=== PATIENT | female | born 1935 | race Caucasian/White ===

== ENCOUNTER 2018-08-01 12:03 | Inpatient (IN) | END 2018-08-01 18:39 | disposition home or self-care (01) | DRG 291 ==

== ENCOUNTER 2018-08-08 09:23 | Observation (INO) | END 2018-08-09 17:30 | disposition home or self-care (01) ==

== ENCOUNTER 2018-11-17 11:35 | Inpatient (IN) | payer MEDICARE, OTHER ==
[~2018-11-17] VITALS: Ht 154.9 cm; Wt 73.2 kg
[~2018-11-17 11:35] MED LIST: AMLO5TAB4 PO; ASPI-817 PO; FURO40TA4 PO; ISOS120T15 PO; MTF1000T PO; RANO10002 PO; TRAM50TA PO
[2018-11-17] MEDS ORDERED: NITROGLYCERIN 2% 1 GM OINT PKT TD STA (11:43)
[2018-11-17] MEDS ORDERED: ASPIRIN 81 MG TAB PO STA (11:43)
[2018-11-17] MEDS ORDERED: ISOS10TA2 PO (11:58)
[2018-11-17] MEDS ORDERED: LOSA100T15 PO (11:58)
[2018-11-17] MEDS ORDERED: DEXL60CA2 PO (11:58)
--- NOTE | 2018-11-17 13:40 | ERD ---
ER Documentation Chief Complaint Chief Complaint PT [facility] CP 03/09 , DENIES SOB HPI This is a 82-year-old female who has a history of CAD, bypass, CHF who was sent from her home care facility for chest pain. The patient says she has substernal chest pressure radiating to her left shoulder and arm with some shortness of breath, no diaphoresis, no nausea vomiting. There is limited history because of her difficulty with language barrier. She has been admitted to the hospital in the past for chest pain back in July 2018 where she had a rule out. She received aspirin and 3 nitro sprays by EMS which relieved her pain ROS All systems reviewed and are negative except as per history of present illness. Medications Home Meds Active Scripts Furosemide* (Furosemide*) 40 Mg Tablet, 40 MG PO DAILY for 90 Days, #90 TAB Prov:JOHN ESTRADA MD 08/01/18 Reported Medications Isosorbide Dinitrate* (Isordil*) 10 Mg Tablet, 20 MG PO TID, TAB 11/17/18 Dexlansoprazole (Dexilant) 60 Mg Cap., 60 MG PO DAILY, #30 CAP 11/17/18 Losartan Potassium* (Losartan Potassium*) 100 Mg Tablet, 100 MG PO DAILY, TAB 11/17/18 Tramadol Hcl* (Ultram*) 50 Mg Tablet, 50 MG PO Q6H PRN for PAIN, TAB 08/08/18 Metformin* (Glucophage*) 1,000 Mg Tablet, 1000 MG PO BID, #60 TAB 08/08/18 Amlodipine Besylate* (Norvasc*) 5 Mg Tablet, 5 MG PO DAILY, TAB 08/08/18 Aspirin* (Aspirin* EC) 81 Mg Tablet.dr, 81 MG PO DAILY, TAB 08/08/18 Ranolazine* (Ranexa*) 1,000 Mg Tab.sr.12h, 1000 MG PO BID 07/30/18 Discontinued Reported Medications Isosorbide Mononitrate* (Isosorbide Mononitrate*) 120 Mg Tab.sr.24h, 120 MG PO DAILY, TAB.SA 08/08/18 Allergies Allergies: Coded Allergies: RITESH Inhibitors (Verified Allergy, Mild, SOB, 11/17/18) PMhx/Soc History of Surgery: Yes ( Bypass ) Anesthesia Reaction: Yes Hx Neurological Disorder: No Hx Respiratory Disorders: Yes Hx Cardiac Disorders: Yes (HTN, CHOLESTEROL , CHF, CAD) Hx Psychiatric Problems: No Hx Miscellaneous Medical Probl: Yes ( DM, peripheral neuropathy) Hx Alcohol Use: No Hx Substance Use: No Hx Tobacco Use: No Smoking Status: Never smoker FmHx Family History: No coronary disease Physical Exam Vitals Vital Signs Date Temp Pulse Resp B/P (MAP) Pulse Ox O2 O2 Flow FiO2 Time Delivery Rate 11/17/18 78 18 158/72 100 Room Air 12:14 (100) 11/17/18 98.7 74 16 158/64 100 11:50 (95) Physical Exam Const: Well-developed, well-nourished Head: Atraumatic, normocephalic Eyes: Normal Conjunctiva, PERRLA, EOMI, normal sclera, no nystagmus ENT: Normal External Ears, Nose and Mouth, moist mucus membranes. Neck: Full range of motion. No meningismus, no lymphadenopathy. Resp: Clear to auscultation bilaterally, no wheezing, rhonchi, rales Cardio: Regular rate and rhythm, no murmurs, S1 S2 present Abd: Soft, non tender x 4, non distended. Normal bowel sounds, no guarding or rebound, no pulsitile abdominal masses or bruits Skin: No petechiae or rashes, no ecchymosis , no maculopapular rash Back: No midline or flank tenderness Ext: No cyanosis, or edema, FROM x 4, normal inspection, neurovascularly intact x 4 Neur: Awake and alert, STR 5/5 x 4, sensation intact x 4, no focal findings, cerebellum intact Psych: Normal Mood and Affect Result Diagram: 11/17/18 1200 11/17/18 1200 Results 24 hrs Laboratory Tests Test 11/17/18 12:00 White Blood Count 8.2 10^3/ul Red Blood Count 3.62 10^6/ul Hemoglobin 11.5 g/dl Hematocrit 34.6 % Mean Corpuscular Volume 95.6 fl Mean Corpuscular Hemoglobin 31.8 pg Mean Corpuscular Hemoglobin Concent 33.2 g/dl Red Cell Distribution Width 12.8 % Platelet Count 227 10^3/UL Mean Platelet Volume 9.3 fl Immature Granulocytes % 0.400 % Neutrophils % 66.6 % Lymphocytes % 21.0 % Monocytes % 9.7 % Eosinophils % 1.3 % Basophils % 1.0 % Nucleated Red Blood Cells % 0.0 /100WBC Immature Granulocytes # 0.030 10^3/ul Neutrophils # 5.4 10^3/ul Lymphocytes # 1.7 10^3/ul Monocytes # 0.8 10^3/ul Eosinophils # 0.1 10^3/ul Basophils # 0.1 10^3/ul Nucleated Red Blood Cells # 0.0 10^3/ul Sodium Level 137 mmol/L Potassium Level 4.1 mmol/L Chloride Level 98 mmol/L Carbon Dioxide Level 31 mmol/L Anion Gap 8 Blood Urea Nitrogen 27 mg/dl Creatinine 1.01 mg/dl Est Glomerular Filtrat Rate mL/min mL/min Glucose Level 126 mg/dl Calcium Level 9.9 mg/dl Total Bilirubin 0.2 mg/dl Direct Bilirubin 0.00 mg/dl Indirect Bilirubin 0.2 mg/dl Aspartate Amino Transf (AST/SGOT) 24 IU/L Alanine Aminotransferase (ALT/SGPT) 19 IU/L Alkaline Phosphatase 41 IU/L Troponin I < 0.012 ng/ml B-Type Natriuretic Peptide 648 PG/ML Total Protein 7.3 g/dl Albumin 4.2 g/dl Globulin 3.10 g/dl Albumin/Globulin Ratio 1.35 Current Medications Medications Dose Sig/Alethea Start Time Status Last (Trade) Ordered Route PRN Stop Time Admin Dose Reason Admin Aspirin 162 mg ONCE STAT 11/17/18 DC (Aspirin) PO 11:43 11/17/18 11:44 1 inch ONCE STAT 11/17/18 DC 11/17/18 Nitroglycerin TD 11:43 12:13 11/17/18 11:44 (Nitroglyceri n 2% Oint) Procedures/MDM Ordering MD: LAURA CARRILLO DO Location: E/R Room/Bed: PROCEDURE: XR Chest. CLINICAL INDICATION: Chest pain. TECHNIQUE: Chest, 1 view. COMPARISON: 08/08/2018 FINDINGS: The cardiomediastinal silhouette is normal in size. There are aortic calcifications. Postsurgical changes of a CABG. No focal consolidation is seen. No pleural effusion is seen. No definite pneumothorax is seen. No acute osseous abnormality. IMPRESSION: No radiographic evidence of an acute cardiopulmonary process. Postsurgical changes of a CABG. Aortic atherosclerosis. RPTAT: AAEE Killian Ross Physician Date Time Electronically viewed and signed by Killian Ross Physician on 11/17/2018 12:17 PH/ CC: LAURA CARRILLO DO [id number] EKG: Rate/Rhythm: Normal sinus rhythm with left bundle branch block QRS, ST, QT: NORMAL CO, wide QRS, QT] Impression: Abnormal EKG Cardiac Admit MDM: Patient's symptoms are concerning for cardiac cause will r equire inpatient workup and continuous monitoring. Further w/u for ischemia, arrhythmia, PE or dissection will be deferred to the inpatient team. Departure Diagnosis: Primary Impression: Chest pain Chest pain type: unspecified Qualified Codes: R07.9 - Chest pain, unspecified Condition: Stable LAURA CARRILLO DO Nov 17, 2018 13:40
--- NOTE | 2018-11-17 13:51 | HP ---
Date/Time of Note Date/Time of Note DATE: 11/17/18 TIME: 13:45 Assessment/Plan VTE Prophylaxis Pharmacological prophylaxis: LMWH Lines/Catheters IV Catheter Type (from Nrs): Saline Lock Assessment/Plan Hospital Course 82 yo F who presents to ER with a 3 day hx of recurrent, intermittent L sided chest pain 1. Chest pain r/o ACS -recurrent admission for similar, -negative stress test 07/2018 but with known CAD and classic symptoms -repeat ACS r/o, cardio consult -LBBB on EKG 2. Hx of CHF -Last echo with EF 50% and stage 1 diastolic dysfxn 3. 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 4. Hypertension 5. Dyslipidemia 6. PreDM on empiric metformin. Last A1c 5.7 7. ?CKD 8. Chronic NC anemia PLAN: Telemetry admission, trend cardiac enzymes, oxygen and nitroglycerin therapy as needed. Daily aspirin if no allergy or bleeding risk. Get lipid profile, magnesium and TSH levels in am. Resume home meds and titrate for optimal control Continue all other supportive care Prophylaxis : Lovenox . Result Diagram: 11/17/18 1200 11/17/18 1200 Results 24hrs Laboratory Tests Test 11/17/18 12:00 White Blood Count 8.2 Red Blood Count 3.62 L Hemoglobin 11.5 L Hematocrit 34.6 L Mean Corpuscular Volume 95.6 Mean Corpuscular Hemoglobin 31.8 Mean Corpuscular Hemoglobin Concent 33.2 Red Cell Distribution Width 12.8 Platelet Count 227 Mean Platelet Volume 9.3 Immature Granulocytes % 0.400 Neutrophils % 66.6 Lymphocytes % 21.0 Monocytes % 9.7 Eosinophils % 1.3 Basophils % 1.0 Nucleated Red Blood Cells % 0.0 Immature Granulocytes # 0.030 Neutrophils # 5.4 Lymphocytes # 1.7 Monocytes # 0.8 Eosinophils # 0.1 Basophils # 0.1 Nucleated Red Blood Cells # 0.0 Sodium Level 137 Potassium Level 4.1 Chloride Level 98 Carbon Dioxide Level 31 Anion Gap 8 Blood Urea Nitrogen 27 H Creatinine 1.01 H Est Glomerular Filtrat Rate mL/min Glucose Level 126 Calcium Level 9.9 Total Bilirubin 0.2 Direct Bilirubin 0.00 Indirect Bilirubin 0.2 Aspartate Amino Transf (AST/SGOT) 24 Alanine Aminotransferase (ALT/SGPT) 19 Alkaline Phosphatase 41 L Troponin I < 0.012 B-Type Natriuretic Peptide 648 H Total Protein 7.3 Albumin 4.2 Globulin 3.10 Albumin/Globulin Ratio 1.35 HPI/ROS Admit Date/Time Admit Date/Time Hx of Present Illness Ms. Hurtado is an 82-year-old female with history of diabetes mellitus, hypertension, dyslipidemia, coronary artery disease, coronary artery bypass graft surgery and PT and stent placement to saphenous graft to left anterior descending 07/2012, who presents with complaints intermittent chest pain. Chest pain is located in L side of her chest, below her L breast and radiates to her back and radiates down L arm. She has no fever, no cough, no nausea or vomiting and no acid reflux. No fainting, no focal deficits, no joint swelling or deformity. ALLERGIES: RITESH INHIBITOR. SOCIAL HISTORY: No current tobacco, ETOH or illicit drug use. FAMILY HISTORY: No sudden cardiac or early CAD. REVIEW OF SYSTEMS: As above in HPI. CONSTITUTIONAL: No fevers, chills. PULMONARY: No current shortness of breath but dyspnea on exertion prior to admit. GASTROINTESTINAL: No vomiting. GENITOURINARY: No hematuria. MUSCULOSKELETAL: Degenerative joint disease. PSYCHIATRIC: The patient denies depression. NEUROLOGIC: History of CVA. ENDOCRINE: No documented history of diabetes mellitus. . PMH/Family/Social Past Medical History diabetes mellitus hypertension dyslipidemia coronary artery disease coronary artery bypass graft surgery stent placement to saphenous graft to left anterior descending 07/2012 . Medications Current Medications Ondansetron HCl (Zofran Inj) 4 mg ER BRIDGE PRN IV NAUSEA/VOMITING; Start 11/17/18 at 14:00; Stop 11/18/18 at 13:59 Acetaminophen (Tylenol Tab) 650 mg ER BRIDGE PRN PO .MILD PAIN 1-3 OR TEMP; Start 11/17/18 at 14:00; Stop 11/18/18 at 13:59 Coded Allergies: RITESH Inhibitors (Verified Allergy, Mild, SOB, 11/17/18) Past Surgical History Past Surgical Hx: coronary bypass surgery Family History Significant Family History: no pertinent family hx Social History Alcohol Use: none Smoking Status: Never smoker Drug Use: none Exam/Review of Systems Vital Signs Vitals Vital Signs Date Temp Pulse Resp B/P (MAP) Pulse Ox O2 O2 Flow FiO2 Time Delivery Rate 11/17/18 78 18 158/72 100 Room Air 12:14 (100) 11/17/18 98.7 11:50 Exam Constitutional: alert, oriented; No distress Psych: anxiety Head: normocephalic, atraumatic Eyes: nl conjunctiva, EOMI, PERRL ENMT: mucosa pink and moist Respiratory: clear to auscultation, normal air movement Cardiovascular: regular rate and rhythm, nl pulses, other (healed surgical scar) Gastrointestinal: soft, non-tender, bowel sounds Extremities: No edema Neurological: nl mental status, lethargic Skin: No rash or lesions Additional Comments PROCEDURE: Lexiscan myocardial perfusion study CLINICAL INDICATION: 82 -year-old patient with coronary artery disease, status post CABG, complaining of chest pain and shortness of breath. TECHNIQUE: Lexiscan 0.4 mg intravenously separate acquisition gated myocardial perfusion SPECT using Tc 99m Myoview 27.2 mCi intravenously at stress and Tc-99m Myoview, 11.0 mCi intravenously at rest was performed using the rest/stress sequence. Poststress Myoview SPECT images were obtained in the supine position. COMPARISON: March 06, 2013. FINDINGS: Perfusion images reveal a large size moderate to severe in degree nonreversible perfusion defect in the apical, distal anterior, distal anteroseptal and lateral grimm (previously predominantly reversible defects). There is no evidence of stress-induced ischemia. Lexiscan post stress gated SPECT images demonstrate a dyskinetic septal wall and no wall motion abnormalities. IMPRESSION: 1. The type and distribution of the scintigraphic abnormalities are most consistent with a large size nonreversible perfusion defect involving the apex, distal anterior, distal anteroseptal and lateral grimm likely due to prior myocardial infarction. 2. Dyskinetic septal wall likely related to prior CABG and no new wall motion abnormalities. 3. The left ventricle ejection fraction at stress is 60% (prior EF was 66%). A call report was made to Dr. Abad at 03:06 p.m. on August 01, 2018. Patient Name: LINDA HURTADO Gender: Female Date: 1935 Study Date: 31-Jul-2018 [employer] Intern: Eveline Peters RDCS Location: 116 Ref. Physician: JOHN ESTRADA Quality: Adequate Procedures: Transthoracic echocardiogram with complete 2D, M-Mode, and doppler examination. Indications: Congestive Heart Failure. 2D/M Mode Doppler Measurement Value Normal Ranges Measurement Value Normal Ranges LVIDd 2D 3.7 3.5 - 5.6 cm AV Peak Mike 1.7 m/sec LVIDs 2D 2.9 2.1 - 4.1 cm AV Peak PG 11.0 mmHg LVPWd 2D 1.0 0.6 - 1.1 cm LVOT Peak Mike 1.0 m/sec IVSd 2D 1.1 0.6 - 1.1 cm LVOT Peak PG 4.0 mmHg AoR Diam 2D 2.5 2.0 - 3.7 cm MV E Peak Mike 0.7 m/sec LA/Ao 2D 2 0 - 1 MV A Peak Mike 1.0 m/sec LA Dimen 2D 3.9 2.3 - 4.0 cm MV E/A 0.8 MV Decel Time 257 msec Lat E` Mike 0.1 m/sec Lateral E/E` 12.9 MV E/A 0.8 TR Peak Mike 3.2 m/sec TR Peak PG 41.0 mmHg RVSP 49.0 mmHg RA Pressure 8.0 Findings Left Ventricle: Lower limits of normal systolic function. Normal left ventricular cavity size. Mild concentric left ventricular hypertrophy. Ejection fraction is visually estimated at 50 %. Tissue Doppler/Mitral Doppler indices are consistent with impaired relaxation (Stage I diastolic dysfunction). These segments of the LV are hypokinetic inferior apex segment and inferior mid segment. Right Ventricle: Normal right ventricular size. Normal right ventricular systolic function. Left Atrium: The left atrium is normal in size. Right Atrium: The right atrium is normal in size. Mitral Valve: Mild mitral leaflet calcification. Mild mitral annular calcification. Mild mitral valve regurgitation. Aortic Valve: No significant aortic stenosis or insufficiency. Aortic cusps appear mildly calcified. Tricuspid Valve: Normal appearance of the tricuspid valve. Estimated peak PA systolic pressure 49 mmHg. There is mild to moderate tricuspid regurgitation. Pulmonic Valve: Normal pulmonic valve appearance. There is mild pulmonic regurgitation. Pericardium: Normal pericardium with no significant pericardial effusion. Aorta: Normal aortic root. IVC: Normal size and no respiratory collapse consistent with elevated right atrial pressure. Conclusions Lower limits of normal systolic function. Normal left ventricular cavity size. Mild concentric left ventricular hypertrophy. Ejection fraction is visually estimated at 50 %. Tissue Doppler/Mitral Doppler indices are consistent with impaired relaxation (Stage I diastolic dysfunction). These segments of the LV are hypokinetic inferior apex segment and inferior mid segment. Mild mitral leaflet calcification. Mild mitral annular calcification. Mild mitral valve regurgitation. Normal appearance of the tricuspid valve. Estimated peak PA systolic pressure 49 mmHg. There is mild to moderate tricuspid regurgitation. Normal pulmonic valve appearance. There is mild pulmonic regurgitation. PROCEDURE: XR Chest. CLINICAL INDICATION: Chest pain. TECHNIQUE: Chest, 1 view. COMPARISON: 08/08/2018 FINDINGS: The cardiomediastinal silhouette is normal in size. There are aortic calcifications. Postsurgical changes of a CABG. No focal consolidation is seen. No pleural effusion is seen. No definite pneumothorax is seen. No acute osseous abnormality. IMPRESSION: No radiographic evidence of an acute cardiopulmonary process. Postsurgical changes of a CABG. Aortic atherosclerosis. RPTAT: AAEE Physician Nish Date Time Electronically viewed and signed by Killian Ross Physician on 11/17/2018 12:17 I reviewed EKG Rate: Within normal limits Rhythm: sinus with LBBB Note: No ST elevation or depressions, CARMEN NASH Nov 17, 2018 13:51
[2018-11-17] MEDS ORDERED: traMADol 50 MG TAB PO PRN (14:00)
[2018-11-17] MEDS ORDERED: ACETAMINOPHEN 325 MG TAB PO PRN (14:00)
[2018-11-17] MEDS ORDERED: ONDANSETRON 4 MG INJ IV PRN (14:00)
[2018-11-17 14:53] VITALS: PULSE 71
[2018-11-17 15:00] VITALS: Ht 154.9 cm; Wt 73.2 kg
[2018-11-17] MEDS: AMLODIPINE 5 MG TAB PO SCH (15:41)
[2018-11-17 16:01] VITALS: PULSE 71
[2018-11-17 16:31] VITALS: BP 143/70; PULSE 78; RESP 18
[2018-11-17] MEDS ORDERED: hydrALAzine 20 MG INJ IV PRN (18:00)
--- NOTE | 2018-11-17 19:32 | CONS ---
DATE OF ADMISSION: 11/17/2018 DATE OF CONSULTATION: 11/17/2018 REASON FOR CONSULTATION: Chest pain, assess for acute coronary syndrome. REQUESTING PHYSICIAN: Copy from the hospitalist service. HISTORY OF PRESENT ILLNESS: Ms. Hurtado is an 82-year-old female with a history of diabetes mellitus, hypertension, dyslipidemia, coronary artery disease, status post prior coronary bypass graft surgery, status post stent placed to saphenous vein graft supplying the LAD in 07/2012 with a stress test neg ative for ischemia on 07/2018 and preserved EF at that time, who presents with complaints of substern al chest pain, pressure-like, occurring at rest, radiating to his left arm. Upon arrival in the [facility] department, temperature 98.7, blood pressure 158/64, pulse 74, respiration 16, saturating 100%. The patient's labs revealed a white count 8.2, hemoglobin 11.5, platelet count 227. Sodium 137, po tassium 4.1, creatinine 1, BUN 27. Troponin negative. BNP of 648. The patient underwent a chest x- ray revealing no radiographic evidence of acute cardiopulmonary process. The patient is status post median sternotomy. The patient's electrocardiogram revealed nonspecific IVCD with secondary pause ab normalities. The patient subsequently admitted to the floor and since admit to floor. She denies on going chest pain at this time. PAST MEDICAL HISTORY: As above in HPI. MEDICATIONS CURRENTLY IN HOSPITAL: 1. Aspirin 81 daily. 2. Losartan 100 mg daily. 3. Isordil 20 mg 3 times a day. 4. Ranexa 1000 mg b.i.d. 5. Norvasc 5 mg daily. ALLERGIES: RITESH INHIBITOR. SOCIAL HISTORY: No current tobacco, ETOH or illicit drug use. FAMILY HISTORY: No sudden cardiac or early CAD. REVIEW OF SYSTEMS: As above in HPI. CONSTITUTIONAL: No fevers, chills. PULMONARY: No current shortness of breath. CARDIOVASCULAR: Intermittent chest pain. GASTROINTESTINAL: No vomiting. GENITOURINARY: No hematuria. MUSCULOSKELETAL: Degenerative joint disease. PSYCHIATRIC: The patient denies depression. NEUROLOGIC: No documented history of CVA. ENDOCRINE: No documented history of diabetes mellitus. PHYSICAL EXAMINATION: VITAL SIGNS: Temperature 98, blood pressure 140/70, pulse 70, respiratory rate 18, saturating 100%. GENERAL: The patient is alert, awake, complaining of intermittent chest pain. NECK: JVP approximately 8 to 9 cm of water. CHEST: Fair air movement throughout. HEART: Regular rate and rhythm. Normal S1, S2, I/ systolic murmur, nondisplaced PMI. ABDOMEN: Positive bowel sounds, soft. EXTREMITIES: No significant pitting edema, 1+ pulses bilateral posterior tibial. LABORATORIES: Most recently from as above in HPI. No further labs for my review at this time. IMAGING STUDIES: As above in HPI. No further imaging. ECG: As in HPI. No further electrograms for my review at this time. IMPRESSION: 1. Chest pain, assess for acute coronary syndrome. 2. Hypertension, mildly elevated. 3. History of coronary artery disease, status post coronary artery bypass graft surgery. 4. History of percutaneous transluminal coronary angioplasty and stent placement to saphenous vein g raft in 2011. 5. Anemia, mild. 6. Increased BNP, assess for congestive heart failure. RECOMMENDATIONS: 1. At this time, would maintain the patient on aspirin for further cardiac events. 2. Maintain patient on telemetry monitoring, follow rhythm and rates closely. 3. Complete the patient's rule out for myocardial infarction to ensure the patient's chest pain was not due to acute coronary syndrome such as an acute myocardial infarction. 4. Follow the patient's blood pressure after receiving Cozaar. 5. Isordil and Norvasc, and possibly consider adding beta martell to maximize medical therapy. 6. Check a fasting lipid panel for general anesthesia and initiate statin and Lipitor medication aft er. 7. Continue echo for reassessment of the patient's ejection fraction, wall motion and major valve ab normalities. Thank you for allowing me to take part in the care of this patient. I will continue to follow very c losely with you with recommendations to be made as the patient progresses through her inpatient hospi radha clinical course. Dictated By: STEPHANY REYES/KATIE Conf#: [id number] DID#: [id number] CC: CARMEN NASH MD;*EndCC*
[2018-11-17 20:00] VITALS: BP 151/67; PULSE 72; PULSE 74; RESP 18
[2018-11-17] MEDS: RANOLAZINE (SR) 500 MG TAB PO SCH (20:26)
[2018-11-17] MEDS: ISOSORBIDE DINITRATE 10 MG TAB PO SCH (20:26)
[2018-11-18] VITALS (12 sets, daily range): BP systolic 110–151; BP diastolic 53–72; PULSE 62–81; RESP 16–20
[2018-11-18] MEDS: PANTOPRAZOLE (EC) 40 MG TAB PO SCH (05:41)
[2018-11-18] MEDS: AMLODIPINE 5 MG TAB PO SCH (08:48)
[2018-11-18] MEDS: RANOLAZINE (SR) 500 MG TAB PO SCH ×2 (08:48→20:54)
[2018-11-18] MEDS: ASPIRIN (EC) 81 MG TAB PO SCH (08:48)
[2018-11-18] MEDS: LOSARTAN 50 MG TAB PO SCH (08:48)
[2018-11-18] MEDS: ISOSORBIDE DINITRATE 10 MG TAB PO SCH ×3 (08:49→20:54)
[2018-11-18] MEDS: ENOXAPARIN 30 MG/0.3 ML SYG SC SCH (08:54)
--- NOTE | 2018-11-18 09:30 | CONS ---
Consult Date/Type/Reason Admit Date/Time Nov 17, 2018 at 13:44 Initial Consult Date Date/Time of Note DATE: 11/18/18 TIME: 09:28 Subjective NO acute events - pt feels better now - o active CP currently. ROS: No fever, no chills, no nausea, no vomiting, no diarrhea/constipation No recent weight changes No chest pain, no PND, no orthopnea - mild SOB No dizziness, blurred vision No thirst, no heat or cold intolerance Objective Vitals Vital Signs Date Temp Pulse Resp B/P (MAP) Pulse Ox O2 O2 Flow FiO2 Time Delivery Rate 11/18/18 98.0 73 18 112/57 98 07:17 (75) 11/17/18 Room Air 14:10 Intake and Output 11/17/18 11/17/18 11/18/18 1515:00 23:00 07:00 IntakeIntake Total 400 ml 300 ml BalanceBalance 400 ml 300 ml Exam General: WN/WD/NAD, AOx 3 HEENT: Unicetric/atraumatic/EOMI (ot follow commands) NECK: JVD elevated, no thyromegaly Lymph: no lymphadenopathy HEART: regular with no S3, II/ systolic murmur at apex LUNGS: Coarse sounds ABD: soft, NT, ND, +BS : Intact Neuro: non focal SKIN: chronic changes EXT: trace edema Results/Medications Result Diagram: 11/17/18 1200 11/17/18 1200 Results 24 hrs Laboratory Tests Test 11/17/18 12:00 11/17/18 15:28 11/17/18 18:01 11/18/18 00:21 White Blood Count 8.2 Red Blood Count 3.62 L Hemoglobin 11.5 L Hematocrit 34.6 L Mean Corpuscular 95.6 Volume Mean Corpuscular 31.8 Hemoglobin Mean Corpuscular 33.2 Hemoglobin Concent Red Cell 12.8 Distribution Width Platelet Count 227 Mean Platelet Volume 9.3 Immature 0.400 Granulocytes % Neutrophils % 66.6 Lymphocytes % 21.0 Monocytes % 9.7 Eosinophils % 1.3 Basophils % 1.0 Nucleated Red Blood 0.0 Cells % Immature 0.030 Granulocytes # Neutrophils # 5.4 Lymphocytes # 1.7 Monocytes # 0.8 Eosinophils # 0.1 Basophils # 0.1 Nucleated Red Blood 0.0 Cells # Sodium Level 137 Potassium Level 4.1 Chloride Level 98 Carbon Dioxide Level 31 Anion Gap 8 Blood Urea Nitrogen 27 H Creatinine 1.01 H Est Glomerular Filtrat Rate mL/min Glucose Level 126 Calcium Level 9.9 Total Bilirubin 0.2 Direct Bilirubin 0.00 Indirect Bilirubin 0.2 Aspartate Amino 24 Transf (AST/SGOT) Alanine 19 Aminotransferase (AL T/SGPT) Alkaline Phosphatase 41 L Troponin I < 0.012 0.013 < 0.012 B-Type Natriuretic 648 H Peptide Total Protein 7.3 Albumin 4.2 Globulin 3.10 Albumin/Globulin 1.35 Ratio Bedside Glucose 94 Magnesium Level 1.7 Creatine Kinase 20 L 22 L Creatine Kinase 3.4 2.1 Index Creatinine Kinase MB 0.67 0.47 (Mass) Home Meds Active Scripts Furosemide* (Furosemide*) 40 Mg Tablet, 40 MG PO DAILY for 90 Days, #90 TAB Prov:MILGRJOHN NAJERA MD 08/01/18 Reported Medications Isosorbide Dinitrate* (Isordil*) 10 Mg Tablet, 20 MG PO TID, TAB 11/17/18 Dexlansoprazole (Dexilant) 60 Mg Cap.mp, 60 MG PO DAILY, #30 CAP 11/17/18 Losartan Potassium* (Losartan Potassium*) 100 Mg Tablet, 100 MG PO DAILY, TAB 11/17/18 Tramadol Hcl* (Ultram*) 50 Mg Tablet, 50 MG PO Q6H PRN for PAIN, TAB 08/08/18 Metformin* (Glucophage*) 1,000 Mg Tablet, 1000 MG PO BID, #60 TAB 08/08/18 Amlodipine Besylate* (Norvasc*) 5 Mg Tablet, 5 MG PO DAILY, TAB 08/08/18 Aspirin* (Aspirin* EC) 81 Mg Tablet.dr, 81 MG PO DAILY, TAB 08/08/18 Ranolazine* (Ranexa*) 1,000 Mg Tab.sr.12h, 1000 MG PO BID 07/30/18 Discontinued Reported Medications Isosorbide Mononitrate* (Isosorbide Mononitrate*) 120 Mg Tab.sr.24h, 120 MG PO DAILY, TAB.SA 08/08/18 Medications Current Medications Amlodipine Besylate (Norvasc) 5 mg DAILY PO Last administered on 11/18/18at 08:48; Admin Dose 5 MG; Start 11/17/18 at 15:00 Aspirin (Halfprin) 81 mg DAILY PO Last administered on 11/18/18 08:48; Admin Dose 81 MG; Start 11/18/18 at 09:00 Isosorbide Dinitrate (Isordil) 20 mg TID PO Last administered on 11/18/18 08:49; Admin Dose 20 MG; Start 11/17/18 at 21:00 Ranolazine (Ranexa) 1,000 mg BID PO Last administered on 11/18/18 08:48; Admin Dose 1,000 MG; Start 11/17/18 at 21:00 Tramadol HCl (Ultram) 50 mg Q6H PRN PO PAIN; Start 11/17/18 at 14:00 Pantoprazole (Protonix Tab) 40 mg DAILY@06 PO Last administered on 11/18/18 05:41; Admin Dose 40 MG; Start 11/18/18 at 06:00 Losartan Potassium (Cozaar) 100 mg DAILY PO Last administered on 11/18/18 08:48; Admin Dose 100 MG; Start 11/18/18 at 09:00 Enoxaparin Sodium (Lovenox) 30 mg DAILY SC Last administered on 11/18/18 08:54; Admin Dose 30 MG; Start 11/18/18 at 09:00 Hydralazine HCl (Apresoline) 10 mg Q4H PRN IV SBP>170; Start 11/17/18 at 18:00 Imaging 1. Chest pain, assess for acute coronary syndrome - r/o SC, no CP now - med Rx advised. 2. Hypertension, mildly elevated - con't to adjust meds, feels better now. 3. History of coronary artery disease, status post coronary artery bypass graft surgery - stable. 4. History of percutaneous transluminal coronary angioplasty and stent placement to saphenous vein graft in 2011. 5. Anemia, mild - no active bleedig now. 6. Increased BNP, assess for congestive heart failure - ECHO to follow. ARIA FERRO MD Nov 18, 2018 09:29
[2018-11-18] MEDS ORDERED: MAGNESIUM SULFATE 1 GM/D5W 100 ML IVPB ONE (11:30)
[2018-11-18] MEDS: METOPROLOL 25 MG TAB PO SCH ×2 (14:42→20:54)
--- NOTE | 2018-11-18 15:21 | RADRPT ---
Echocardiogram Report Patient Name: LINDA PARKPatient ID: [id number] : 1935 (82y 11m)Study Date: 11/18/2018 7:40:47 AM Gender: FAccession #: [id number] Tech: [place] Location: Ref.Physician: STEPHANY ABAD Height(Cm): BSA: Weight(Kg): Quality: GoodAccount #: Procedures: Echocardiographic Report: Transthoracic echocardiogram with complete 2D, M-Mode, and doppler examination. Indications: Chest Pain. Measurements: 2D/M Mode Doppler Measurement Value Normal Range Measurement Value Normal Range LVIDd 2D 4.3 [ 3.8 - 5.2 ] cm AV Peak Mike 1.7 [ 100.0 - 170.0 ] cm/sec LVIDs 2D 2.7 [ 2.2 - 3.5 ] cm AV Peak PG 11.0 [ 2.0 - 9.0 ] mmHg LVPWd 2D 1.2 [ 0.6 - 0.9 ] cm LVOT Peak Mike 0.9 [ 70.0 - 110.0 ] cm/sec IVSd 2D 1.2 [ 0.6 - 0.9 ] cm LVOT Peak PG 3.0 [ 2.0 - 6.0 ] mmHg AoR Diam 2D 2.5 [ 2.3 - 3.1 ] cm MV E Peak Mike 0.8 [ 60.0 - 130.0 ] cm/sec EDV 2D 83.5 [ 46.0 - 106.0 ] ml MV A Peak Mike 1.1 [ 100.0 - 120.0 ] cm/sec ESV 2D 28.0 [ 14.0 - 42.0 ] ml MV E/A 0.7 [ 0.8 - 1.5 ] ratio EF 2D 66.5 [ 54.0 - 74.0 ] percent MV Decel Time 190 [ 104 - 258 ] msec LA Dimen 2D 3.2 [ 2.7 - 3.8 ] cm Lat E` Mike 0.1 [ 10.0 - 15.0 ] cm/sec Lateral E/E` 12.3 [ 1.0 - 2.0 ] ratio MV E/A 0.7 [ 0.8 - 1.5 ] ratio TR Peak Mike 2.4 [ 100.0 - 280.0 ] cm/sec TR Peak PG 24.0 mmHg RVSP 27.0 [ 10.0 - 36.0 ] mmHg RA Pressure 3.0 mmHg Findings: Left Ventricle: Normal left ventricular systolic function. Normal left ventricular cavity size. Mild concentric left ventricular hypertrophy. Ejection fraction is visually estimated at 55 %. Tissue Doppler/Mitral Doppler indices are consistent with impaired relaxation (Stage I diastolic dysfunction). Right Ventricle: Normal right ventricular size. Normal right ventricular systolic function. Left Atrium: The left atrium is normal in size. Right Atrium: The right atrium is normal in size. Mitral Valve: Normal appearance of the mitral valve. Mild mitral annular calcification. Mild mitral valve regurgitation. Aortic Valve: No significant aortic stenosis or insufficiency. Aortic cusps appear mildly calcified. Tricuspid Valve: Normal appearance of the tricuspid valve. Estimated peak PA systolic pressure 27 mmHg. There is mild tricuspid regurgitation. Pulmonic Valve: Normal pulmonic valve appearance. Pericardium: Normal pericardium with no significant pericardial effusion. Pleural effusion seen. Aorta: Normal aortic root. IVC: Normal size and normal respiratory collapse consistent with normal right atrial pressure. Conclusions: Normal left ventricular systolic function. Normal left ventricular cavity size. Mild concentric left ventricular hypertrophy. Ejection fraction is visually estimated at 55 %. Tissue Doppler/Mitral Doppler indices are consistent with impaired relaxation (Stage I diastolic dysfunction). Normal appearance of the mitral valve. Mild mitral annular calcification. Mild mitral valve regurgitation. Normal appearance of the tricuspid valve. Estimated peak PA systolic pressure 27 mmHg. There is mild tricuspid regurgitation. Electronically Signed By: Stephany Abad 2018-11-18 15:21:13 PST
[2018-11-18] MEDS ORDERED: METOPROLOL 5 MG INJ ONE ×2 (15:49→16:06)
[2018-11-18] MEDS ORDERED: IOHEXOL 100 ML ONE (16:04)
[2018-11-18] MEDS ORDERED: SOD CHLORIDE 0.9% 100 ML ONE (16:04)
[2018-11-18] MEDS ORDERED: IOHEXOL 350MG/ML 50 ML BTL ONE (16:04)
--- NOTE | 2018-11-18 16:38 | PN ---
DATE: 11/18/2018 TIME OF EVALUATION: About 10:00 a.m. SUBJECTIVE: The patient says she continues to have intermittent chest pain. PHYSICAL EXAMINATION: VITAL SIGNS: Temperature 98.0, pulse 75, respirations 18, blood pressure 151/67, saturations are 98% on room air. GENERAL: The patient is calm, alert, in no distress. HEENT: Head is normocephalic. Pupils are equal and reactive. NECK: Supple, nontender. CHEST: With clear breath sounds bilaterally. No tenderness on palpation. CARDIOVASCULAR: Heart sounds, S1 and S2. No murmurs. Telemetry rhythm, sinus with no arrhythmias. ABDOMEN: Soft, nontender, nondistended. Normoactive bowel sounds. EXTREMITIES: No lower extremity edema. LABORATORY VALUES: The patient has had 3 negative troponins. Magnesium level from yesterday was 1.7 . IMPRESSION: An 82-year-old female who had presented to the emergency room with chest pain of 3 days' duration, described as recurrent and intermittent on the left side and managed as follows: 1. Chest pain. - Acute coronary syndrome has been ruled out. 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 Barreto. The patient had a positive stress t est in the office back in 07/2018, but had a negative stress test here in the hospital about the same time. The patient does have known coronary artery disease and her symptoms sound classic. [facility] referred her to get a CT coronary angiogram at that time, but I do not believ e this was done yet. I spoke with the patient's son after that conversation and he told me this proc edure had not been done because the family did not know about it. Upon speaking with the inpatient c ardiologist, Dr. Padilla, the plan is to go ahead and order a CT angiogram and further intervention wi ll depend on what is found. The patient, however, has borderline renal function, so I am going to ge t a nephrology consultation to make sure that this procedure is done safely. 2. History of congestive heart failure. - Last echo with ejection fraction of 50% and stage I diastolic dysfunction, no concern for acute exa cerbation at this time. 3. History of coronary artery disease with history of PTCA and stent placement in 2011 and CABG with saphenous vein graft to left anterior descending. 4. Hypertension with good control. 5. Dyslipidemia. 6. Prediabetes mellitus on empiric metformin. 7. Possible chronic kidney disease. 8. Chronic normocytic anemia. DISPOSITION: The patient is for CTA today. Nephrology consultation. ADDENDUM: Later in the day, I was notified that the patient cannot undergo CT on this hospital as he r heart rate was maintained in the 60s. Based on cardiology's prior recommendations, I will go ahead and restart her on twice a day beta martell therapy. DVT prophylaxis with Lovenox. Care time today has been more than 2 hours. Dictated By: CARMEN NASH MD BA/NTS Conf#: [id number] DID#: [id number] CC: STEPHANY CRABTREE MD;*EndCC*
--- NOTE | 2018-11-18 18:51 | CONS ---
DATE OF ADMISSION: 11/17/2018 DATE OF CONSULTATION: TYPE OF CONSULTATION: Nephrology. REASON FOR CONSULTATION: Acute kidney injury. PHYSICIAN REQUESTING CONSULT: Dr. Nash. HISTORY OF PRESENT ILLNESS: This is an 82-year-old female with a past medical history of CHF, histor y of coronary artery disease, history of hypertension, dyslipidemia, questionable history of CKD, who presented to [facility] with intermittent chest pain. The patient stated the ches t pain was located left side radiating down. The patient denies any fevers, chills, nausea, and vomi ting. Upon arrival to the emergency room, the patient was admitted to telemetry to rule out acute co ronary syndrome. She was subsequently seen by furniture repairer, Dr. Padilla and Dr. Abad. The patient was placed on antihypertensive medications and given pain medications. In terms of patient's renal history, per the patient, she denies any prior history of chronic kidney disease or acute kidney injury. The patient's baseline creatinine has been ranging between 1.0 to 1. 4 mg/dL. The patient denies any hemoptysis, hematemesis or hematochezia. PAST MEDICAL HISTORY: As stated above, history of possible CKD, history of CHF, coronary artery dise ase, hypertension, dyslipidemia. FAMILY HISTORY: No family of kidney disease. SOCIAL HISTORY: Does not drink, smoke or do drugs. MEDICATIONS: The patient's medications have been reviewed. ALLERGIES: PLEASE SEE LIST. PAST SURGICAL HISTORY: Status post CABG. REVIEW OF SYSTEMS: A 14-point review of systems conducted. Pertinent positives stated in HPI, other wagoner negative. PHYSICAL EXAMINATION: VITAL SIGNS: Blood pressure is 127/63, respiration 18, pulse 73, temperature 98.8. HEENT: Head is normocephalic. NECK: Supple. HEART: Regular rate. LUNGS: Show diminished breath sounds at the base. ABDOMEN: Soft, nontender to palpation without rebound or guarding. EXTREMITIES: Negative for clubbing, cyanosis, no edema. DERMATOLOGIC: No rashes. MUSCULOSKELETAL: No joint effusion. NEUROLOGIC: No change in exam. LABORATORY DATA: Shows white count 8.2, hemoglobin 9.5, platelet count 227. Sodium 137, BUN 27, cre atinine 1.1. ASSESSMENT AND PLAN: This is an 82-year-old female who presents with: 1. Renal insufficiency, likely chronic kidney disease with previous baseline creatinine about 1.0 to 1.4 mg/dL. The patient's renal function appears to be near baseline. The patient is pending a CT a ngio. Recommendation at this point is to give a course of IV fluids if the patient allows. Would, o therwise, avoid hemodynamic fluctuations. We will monitor urinary output closely. The patient has a mild risk for contrast-associated nephropathy given history of chronic kidney disease and hypertensi on. 2. Chest pain. The patient has been ruled out for acute coronary syndrome. A CT angio is pending. We will continue to monitor. Follow up with Cardiology. 3. History of congestive heart failure. The patient currently compensated. Continue to monitor. 4. History of coronary artery disease, status post PCI stent placement, history of coronary artery b ypass graft ____ fracture. 6. Hypertension. Continue blood pressure regimen to Dyslipidemia. Continue statin therapy. 7. Anemia. Monitor. Thank you, Dr. Gregory, for this interesting consult. It will be a pleasure to follow patient with you throughout the hospital course. Dictated By: SHAYLA KIDD DO NR/NTS Conf#: [id number] DID#: [id number] CC: CARMEN NASH MD;*EndCC*
[2018-11-19] VITALS (9 sets, daily range): BP systolic 84–160; BP diastolic 46–69; PULSE 50–62; RESP 16–18
[2018-11-19] MEDS ORDERED: morphine 2 MG INJ IV PRN (04:30)
[2018-11-19] MEDS: PANTOPRAZOLE (EC) 40 MG TAB PO SCH (05:16)
--- NOTE | 2018-11-19 06:53 | PN ---
Date/Time of Note Date/Time of Note DATE: 11/19/18 TIME: 06:50 Assessment/Plan VTE Prophylaxis Risk score (from Ns)>0 risk: 6 SCD applied (from Nsg): No Pharmacological prophylaxis: LMWH Lines/Catheters IV Catheter [facility] (from [facility] [place] Lock Assessment/Plan Hospital Course S: O: Constitutional: alert, oriented; No distress Psych: anxiety Head: normocephalic, atraumatic Eyes: nl conjunctiva, EOMI, PERRL ENMT: mucosa pink and moist Respiratory: clear to auscultation, normal air movement Cardiovascular: regular rate and rhythm, nl pulses, other (healed surgical scar) Gastrointestinal: soft, non-tender, bowel sounds Extremities: No edema Neurological: nl mental status, Skin: No rash or lesions assessment and plan: 82 yo F who presents to ER with a 3 day hx of recurrent, intermittent L sided chest pain 1. Chest pain -ACS ruled out -diffusely abn cardiac CT with possible instent stenosis?, await cardiology review and recs -LBBB on EKG 2. Hx of CHF -Last echo with EF 50% and stage 1 diastolic dysfxn 3. Hx of CAD with hx of LINE E[employer]OR and stent placement in 2011 to a saphenous vein graft to left anterior descending and History of coronary artery bypass graft. -see #1 4. Hypertension: good control 5. Dyslipidemia: statin 6. PreDM on empiric metformin. Last A1c 5.7 7. ?CKD -creatinine stable today after contrast study yesterday, continue to monitor -Nephro following 8. Chronic NC anemia: stable 9. Thyroid nodule 9mm -TSH and free T4 08/17, wnl, repeat ? will discuss with endo PLAN: await cardio plan Continue all other supportive care Prophylaxis : Lovenox . Result Diagram: 11/19/18 0507 11/19/18 0507 Results 24hrs Laboratory Tests Test 11/18/18 11:05 11/18/18 17:35 11/19/18 05:07 Magnesium Level 1.8 Urine Color YELLOW Urine Clarity CLEAR Urine pH 7.0 Urine Specific [place] 1.039 H Urine Ketones NEGATIVE Urine Nitrite NEGATIVE Urine Bilirubin NEGATIVE Urine Urobilinogen NEGATIVE Urine Leukocyte Esterase NEGATIVE Urine Hemoglobin NEGATIVE Urine Random Creatinine 27.90 Urine Random Sodium 74 Urine Glucose NEGATIVE Urine Total Protein 6.0 White Blood Count 8.8 Red Blood Count 3.49 L Hemoglobin 11.0 L Hematocrit 33.0 L Mean Corpuscular Volume 94.6 Mean Corpuscular Hemoglobin 31.5 Mean Corpuscular Hemoglobin Concent 33.3 Red Cell Distribution Width 12.6 Platelet Count 225 Mean Platelet Volume 9.8 Immature Granulocytes % 0.300 Neutrophils % 60.4 Lymphocytes % 26.8 Monocytes % 9.1 Eosinophils % 2.6 Basophils % 0.8 Nucleated Red Blood Cells % 0.0 Immature Granulocytes # 0.030 Neutrophils # 5.3 Lymphocytes # 2.4 Monocytes # 0.8 Eosinophils # 0.2 Basophils # 0.1 Nucleated Red Blood Cells # 0.0 Sodium Level 138 Potassium Level 4.2 Chloride Level 98 Carbon Dioxide Level 26 Anion Gap 14 H Blood Urea Nitrogen 21 H Creatinine 0.97 Est Glomerular Filtrat Rate mL/min Glucose Level 136 Calcium Level 9.3 Exam/Review of Systems Exam Vitals Vital Signs Date Temp Pulse Resp B/P (MAP) Pulse Ox O2 O2 Flow FiO2 Time Delivery Rate 11/19/18 98.0 57 16 134/63 97 04:00 (86) 11/17/18 Room Air 14:10 Intake and Output 11/18/18 11/18/18 11/19/18 1515:00 23:00 07:00 IntakeIntake Total 100 ml 700 ml 650 ml BalanceBalance 100 ml 700 ml 650 ml Results Results 24hrs Laboratory Tests Test 11/18/18 11:05 11/18/18 17:35 11/19/18 05:07 Magnesium Level 1.8 Urine Color YELLOW Urine Clarity CLEAR Urine pH 7.0 Urine Specific [place] 1.039 H Urine Ketones NEGATIVE Urine Nitrite NEGATIVE Urine Bilirubin NEGATIVE Urine Urobilinogen NEGATIVE Urine Leukocyte Esterase NEGATIVE Urine Hemoglobin NEGATIVE Urine Random Creatinine 27.90 Urine Random Sodium 74 Urine Glucose NEGATIVE Urine Total Protein 6.0 White Blood Count 8.8 Red Blood Count 3.49 L Hemoglobin 11.0 L Hematocrit 33.0 L Mean Corpuscular Volume 94.6 Mean Corpuscular Hemoglobin 31.5 Mean Corpuscular Hemoglobin Concent 33.3 Red Cell Distribution Width 12.6 Platelet Count 225 Mean Platelet Volume 9.8 Immature Granulocytes % 0.300 Neutrophils % 60.4 Lymphocytes % 26.8 Monocytes % 9.1 Eosinophils % 2.6 Basophils % 0.8 Nucleated Red Blood Cells % 0.0 Immature Granulocytes # 0.030 Neutrophils # 5.3 Lymphocytes # 2.4 Monocytes # 0.8 Eosinophils # 0.2 Basophils # 0.1 Nucleated Red Blood Cells # 0.0 Sodium Level 138 Potassium Level 4.2 Chloride Level 98 Carbon Dioxide Level 26 Anion Gap 14 H Blood Urea Nitrogen 21 H Creatinine 0.97 Est Glomerular Filtrat Rate mL/min Glucose Level 136 Calcium Level 9.[address] 11/18/18 IMPRESSION: 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 Coronary artery bypass grafts: CASTLE: In situ EUNICE: In situ G1: To distal LAD demonstrates minimal irregularities. [place] coronary arteries: RCA: Moderate irregularities of the small nondominant vessel which predominately supplies the acute marginal branch. LM: Minimal irregularities. LAD: Multiple severe stenoses in the proximal segment with occlusion in the midsegment. Reconstituted distally by a bypass graft. A stent is present within the distal segment which produces beam hardening artifact with an indeterminate degree of patency; the vessel distal to the stent enhances normally. Diags: Severe stenoses. LCX: Multiple plaques in the proximal segment of the vessel producing stenoses ranging from 20% - 40%. Additional scattered smaller plaques in the mid and distal segments producing less than 20% stenosis. OMs: Moderate and severe stenoses. 17 mm possibly enhancing nodule of the dorsal aspect of the right lobe of the thyroid gland. RPTAT: AADD .Luís Leon MD, Date Time Electronically viewed and signed by .Luís Leon MD, on 11/18/2018 22:03 .B/ CC: CARMEN NASH Medications Medication Current Medications Amlodipine Besylate (Norvasc) 5 mg DAILY PO Last administered on 11/18/18at 08:48; Admin Dose 5 MG; Start 11/17/18 at 15:00 Aspirin (Halfprin) 81 mg DAILY PO Last administered on 11/18/18at 08:48; Admin Dose 81 MG; Start 11/18/18 at 09:00 Isosorbide Dinitrate (Isordil) 20 mg TID PO Last administered on 11/18/18 20:54; Admin Dose 20 MG; Start 11/17/18 at 21:00 Ranolazine (Ranexa) 1,000 mg BID PO Last administered on 11/18/18 20:54; Admin Dose 1,000 MG; Start 11/17/18 at 21:00 Tramadol HCl (Ultram) 50 mg Q6H PRN PO PAIN; Start 11/17/18 at 14:00 Pantoprazole (Protonix Tab) 40 mg DAILY@06 PO Last administered on 11/19/18 05:16; Admin Dose 40 MG; Start 11/18/18 at 06:00 Losartan Potassium (Cozaar) 100 mg DAILY PO Last administered on 11/18/18 08:48; Admin Dose 100 MG; Start 11/18/18 at 09:00 Enoxaparin Sodium (Lovenox) 30 mg DAILY SC Last administered on 11/18/18 08:54; Admin Dose 30 MG; Start 11/18/18 at 09:00 Hydralazine HCl (Apresoline) 10 mg Q4H PRN IV SBP>170; Start 11/17/18 at 18:00 Metoprolol Tartrate (Lopressor) 25 mg BID PO Last administered on 11/18/18 20:54; Admin Dose 25 MG; Start 11/18/18 at 14:30 Morphine Sulfate (morphine) 2 mg Q4H PRN IV SEVERE PAIN LEVEL 7-10 Last administered on 11/19/18 04:37; Admin Dose 2 MG; Start 11/19/18 at 04:30 CARMEN NASH Nov 19, 2018 06:52
[2018-11-19] MEDS: ISOSORBIDE DINITRATE 10 MG TAB PO SCH ×2 (09:08→13:00)
[2018-11-19] MEDS: METOPROLOL 25 MG TAB PO SCH (09:08)
[2018-11-19] MEDS: AMLODIPINE 5 MG TAB PO SCH (09:08)
[2018-11-19] MEDS: ASPIRIN (EC) 81 MG TAB PO SCH (09:08)
[2018-11-19] MEDS: RANOLAZINE (SR) 500 MG TAB PO SCH (09:09)
[2018-11-19] MEDS: LOSARTAN 50 MG TAB PO SCH (09:09)
[2018-11-19] MEDS: ENOXAPARIN 30 MG/0.3 ML SYG SC SCH (09:22)
--- NOTE | 2018-11-19 09:59 | PN ---
DATE: 11/19/2018 SUBJECTIVE: The patient had a cardiac CT study performed without complications. The patient has had excellent urinary output. No other events noted. The patient continues to have intermittent chest pain. OBJECTIVE: VITAL SIGNS: Blood pressure is 134/63, respirations 16, pulse 67, temperature 98.0. HEENT: Head is normocephalic. NECK: Supple. HEART: Regular rate. LUNGS: Show diminished breath sounds at the base. ABDOMEN: Soft, nontender to palpation without rebound or guarding. EXTREMITIES: Negative for clubbing, cyanosis, no edema. DERMATOLOGIC: No rashes. MUSCULOSKELETAL: No joint effusion. NEUROLOGIC: No change in exam. MEDICATIONS: The patient's medications have been reviewed. LABORATORY DATA: Shows sodium 138, potassium 4.2, BUN 21, creatinine 0.97. White count 8.8, hemoglo bin 9.0, platelet count is 225. IMAGING STUDIES: Reviewed. ASSESSMENT AND PLAN: 1. Renal insufficiency, possible chronic kidney disease. The patient is status post cardiac CT edin ogram. The patient currently has excellent urinary output. Renal function has remained stable. We will continue to monitor for any signs of contrast-associated nephropathy. 2. Chest pain. The patient is being ruled out for acute coronary syndrome. Follow up with Cardiolo gy. Cardiac CT was reviewed. Continue medical management. 3. History of congestive heart failure, currently compensated. 4. History of coronary artery disease with a history of coronary artery bypass graft. Continue [facility] management. 5. Hypertension. Continue current blood pressure regimen. 6. Anemia. Continue to monitor hemoglobin and hematocrit levels. Dictated By: SHAYLA KIDD DO NR/NTS Conf#: [id number] DID#: [id number] CC: CARMEN NASH MD; STEPHANY CRABTREE MD;*EndCC*
--- NOTE | 2018-11-19 14:10 | CONS ---
Assessment/Plan Assessment/Plan Hospital Course (Demo Recall) IMPRESSION: 1. Chest pain, assess for acute coronary syndrome.-neg trop x 3. Echo this admit EF 55. NO ischemia by Lexiscan 08/17. NL EF. CP resolved. CTA with unclear imformation pertaining to stent patency in LAD due to artifact 2. Hypertension, mildly elevated. 3. History of coronary artery disease, status post coronary artery bypass graft surgery. 4. History of percutaneous transluminal coronary angioplasty and stent placement to saphenous vein graft in 2011. 5. Anemia, mild. 6. Increased BNP, assess for congestive heart failure. Recc: -Tele -Continue BB/norvasc/oral nitrates/losartan -Continue ranexa/oral nitrates -OK for d/c on current medications with outpatient f/u and possible outpatient cath Consultation Date/Type/Reason Admit Date/Time Nov 19, 2018 at 11:51 Initial Consult Date 11/17/18 Type of Consult Cardiology Reason for Consultation Chest pain Requesting Provider: CARMEN NASH Date/Time of Note DATE: 11/19/18 TIME: 13:58 Exam/Review of Systems Vital Signs Vitals Vital Signs Date Temp Pulse Resp B/P (MAP) Pulse Ox O2 O2 Flow FiO2 Time Delivery Rate 11/19/18 57 12:10 11/19/18 97.6 18 135/62 97 11:22 (86) 11/17/18 Room Air 14:10 Intake and Output 11/18/18 11/18/18 11/19/18 1515:00 23:00 07:00 IntakeIntake Total 100 ml 700 ml 650 ml BalanceBalance 100 ml 700 ml 650 ml Exam Exam Review of Systems: CONSTITUTIONAL: No fevers, chills. PULMONARY: No sob CARDIOVASCULAR: No chest pain/palpitations GASTROINTESTINAL: No nausea/vomiting. GENITOURINARY: No hematuria/dysuria. MUSCULOSKELETAL: No myagias/arthalgias. PSYCHIATRIC: The patient denies depression. NEUROLOGIC: No weakness Constitutional: alert Psych: no complaints Head: normocephalic ENMT: mucosa pink and moist Neck: supple, jvd (9 cm water) Respiratory: diminished breath sounds (at bases/B) Cardiovascular: regular rate and rhythm Gastrointestinal: soft, non-tender Musculoskeletal: muscle tone (normal) Extremities: edema (none) Neurological: other (No focal deficits) Labs Result Diagram: 11/19/18 0507 11/19/18 0507 Results 24hrs Laboratory Tests Test 11/18/18 17:35 11/19/18 05:07 Urine Color YELLOW Urine Clarity CLEAR Urine pH 7.0 Urine Specific [place] 1.039 H Urine Ketones NEGATIVE Urine Nitrite NEGATIVE Urine Bilirubin NEGATIVE Urine Urobilinogen NEGATIVE Urine Leukocyte Esterase NEGATIVE Urine Hemoglobin NEGATIVE Urine Random Creatinine 27.90 Urine Random Sodium 74 Urine Glucose NEGATIVE Urine Total Protein 6.0 White Blood Count 8.8 Red Blood Count 3.49 L Hemoglobin 11.0 L Hematocrit 33.0 L Mean Corpuscular Volume 94.6 Mean Corpuscular Hemoglobin 31.5 Mean Corpuscular Hemoglobin Concent 33.3 Red Cell Distribution Width 12.6 Platelet Count 225 Mean Platelet Volume 9.8 Immature Granulocytes % 0.300 Neutrophils % 60.4 Lymphocytes % 26.8 Monocytes % 9.1 Eosinophils % 2.6 Basophils % 0.8 Nucleated Red Blood Cells % 0.0 Immature Granulocytes # 0.030 Neutrophils # 5.3 Lymphocytes # 2.4 Monocytes # 0.8 Eosinophils # 0.2 Basophils # 0.1 Nucleated Red Blood Cells # 0.0 Sodium Level 138 Potassium Level 4.2 Chloride Level 98 Carbon Dioxide Level 26 Anion Gap 14 H Blood Urea Nitrogen 21 H Creatinine 0.97 Est Glomerular Filtrat Rate mL/min Glucose Level 136 Calcium Level 9.3 Phosphorus Level 3.7 Magnesium Level 2.1 Medications Medications Current Medications Amlodipine Besylate (Norvasc) 5 mg DAILY PO Last administered on 11/19/18 09:08; Admin Dose 5 MG; Start 11/17/18 at 15:00 Aspirin (Halfprin) 81 mg DAILY PO Last administered on 11/19/18 09:08; Admin Dose 81 MG; Start 11/18/18 at 09:00 Isosorbide Dinitrate (Isordil) 20 mg TID PO Last administered on 11/19/18 09:08; Admin Dose 20 MG; Start 11/17/18 at 21:00 Ranolazine (Ranexa) 1,000 mg BID PO Last administered on 11/19/18 09:09; Admin Dose 1,000 MG; Start 11/17/18 at 21:00 Tramadol HCl (Ultram) 50 mg Q6H PRN PO PAIN; Start 11/17/18 at 14:00 Pantoprazole (Protonix Tab) 40 mg DAILY@06 PO Last administered on 11/19/18 05:16; Admin Dose 40 MG; Start 11/18/18 at 06:00 Losartan Potassium (Cozaar) 100 mg DAILY PO Last administered on 11/19/18 09:09; Admin Dose 100 MG; Start 11/18/18 at 09:00 Enoxaparin Sodium (Lovenox) 30 mg DAILY SC Last administered on 11/19/18 09:22; Admin Dose 30 MG; Start 11/18/18 at 09:00 Hydralazine HCl (Apresoline) 10 mg Q4H PRN IV SBP>170; Start 11/17/18 at 18:00 Metoprolol Tartrate (Lopressor) 25 mg BID PO Last administered on 11/19/18 09:08; Admin Dose 25 MG; Start 11/18/18 at 14:30 Morphine Sulfate (morphine) 2 mg Q4H PRN IV SEVERE PAIN LEVEL 7-10 Last administered on 11/19/18at 04:37; Admin Dose 2 MG; Start 11/19/18 at 04:30 STEPHANY CRABTREE Nov 19, 2018 14:10
--- NOTE | 2018-11-19 15:36 | PDOCDIS ---
Discharge Instructions DIAGNOSIS Discharge Diagnosis Chest pain and coronary artery disease . CONDITION [id number] Patient Condition: [id number] Stable HOME CARE INSTRUCTIONS: [id number] Diet Instructions: Xatex3u Low Fat /Cholesterol ACTIVITY: Odmie8Ag Activity Restrictions: Onzef7u Slowly Increase Activity Rest between Activity FOLLOW UP/APPOINTMENTS Follow-up Plan 1. Followup with your branch manager Dr Souza, -A cardiac procedure has been set up for you next 11/27/28 at 10am -Call his office to confirm and for further instructions Office Address: [address] [place] [address] Office Office Roentgenology Teacher: Allyssa Horton 2. Review your medication list with your nurse before leaving and if you need new prescriptions please let your nurse know. 3. I may have made changes to your home medications or given you new prescriptions, please let your primary doctor know as well. 4. Stay compliant with your medications and report any side effects to your PCP or pharmacist. 5. Return to the ER if you have any concerns and cannot reach your doctors or call your insurance company, they usually have a nurse that can help you. CARMEN NASH Nov 19, 2018 15:36
[2018-11-19] MEDS ORDERED: METO-448 PO (15:37)
[2018-11-19] MEDS ORDERED: LOSA100T15 PO (15:37)
[2018-11-19] MEDS ORDERED: LAS20 PO (15:48)
[2018-11-19] MEDS ORDERED: METF500T PO (15:48)
--- NOTE | 2018-11-19 15:50 | PDOCDIS ---
Discharge Instructions DIAGNOSIS Discharge Diagnosis Chest pain and coronary artery disease . CONDITION [id number] Patient Condition: [id number] Stable HOME CARE INSTRUCTIONS: Alzex1Ak Diet Instructions: Mgwmb4w Low Fat /Cholesterol ACTIVITY: Ukaif1Qi Activity Restrictions: Oidnl2z Slowly Increase Activity Rest between Activity FOLLOW UP/APPOINTMENTS Follow-up Plan 1. Followup with your spanish interpreter Dr Souza, -A cardiac procedure has been set up for you next 11/27/28 at 10am -Call his office to confirm and for further instructions Office Address: [address] [place] [address] Office Office Talent Development Analyst: Allyssa Horton 2. Review your medication list with your nurse before leaving and if you need new prescriptions please let your nurse know. 3. I may have made changes to your home medications or given you new prescriptions, please let your primary doctor know as well. 4. Stay compliant with your medications and report any side effects to your PCP or pharmacist. 5. Return to the ER if you have any concerns and cannot reach your doctors or call your insurance company, they usually have a nurse that can help you. DON'T TAKE YOUR METFORMIN AND LASIX FOR THE NEXT 2 DAYS. YOU CAN START TAKING THEM AGAIN 11/22/18 AT THE NEW DOSES I HAVE PRESCRIBED CARMEN NASH Nov 19, 2018 15:49
--- NOTE | 2018-11-19 15:50 | DS ---
Date/Time of Note Date/Time of Note DATE: 11/19/18 TIME: 15:50 Discharge Summary Admission/Discharge Info Admit Date/Time Nov 19, 2018 at 11:51 Discharge Date/Time Discharge Diagnosis Chest pain and coronary artery disease . Patient Condition: Stable Hx of Present Illness Ms. Hurtado is an 82-year-old female with history of diabetes mellitus, hypertension, dyslipidemia, coronary artery disease, coronary artery bypass graft surgery and PT and stent placement to saphenous graft to left anterior descending 07/2012, who presents with complaints intermittent chest pain. Chest pain is located in L side of her chest, below her L breast and radiates to her back and radiates down L arm. She has no fever, no cough, no nausea or vomiting and no acid reflux. No fainting, no focal deficits, no joint swelling or deformity. ALLERGIES: RITESH INHIBITOR. SOCIAL HISTORY: No current tobacco, ETOH or illicit drug use. FAMILY HISTORY: No sudden cardiac or early CAD. REVIEW OF SYSTEMS: As above in HPI. . Hospital Course . Home Meds Active Scripts Furosemide* (Furosemide*) 40 Mg Tablet, 40 MG PO DAILY for 90 Days, #90 TAB Prov:JOHN ESTRADA MD 08/01/18 Reported Medications Isosorbide Dinitrate* (Isordil*) 10 Mg Tablet, 20 MG PO TID, TAB 11/17/18 Dexlansoprazole (Dexilant) 60 Mg Matt.mp, 60 MG PO DAILY, #30 CAP 11/17/18 Losartan Potassium* (Losartan Potassium*) 100 Mg Tablet, 100 MG PO DAILY, TAB 11/17/18 Tramadol Hcl* (Ultram*) 50 Mg Tablet, 50 MG PO Q6H PRN for PAIN, TAB 08/08/18 Metformin* (Glucophage*) 1,000 Mg Tablet, 1000 MG PO BID, #60 TAB 08/08/18 Amlodipine Besylate* (Norvasc*) 5 Mg Tablet, 5 MG PO DAILY, TAB 08/08/18 Aspirin* (Aspirin* EC) 81 Mg Tablet., 81 MG PO DAILY, TAB 08/08/18 Ranolazine* (Ranexa*) 1,000 Mg Tab.sr.12h, 1000 MG PO BID 07/30/18 Discontinued Reported Medications Isosorbide Mononitrate* (Isosorbide Mononitrate*) 120 Mg Tab.sr.24h, 120 MG PO DAILY, TAB.SA 08/08/18 Follow-up Plan 1. Followup with your military cook Dr Souza, -A cardiac procedure has been set up for you next 11/27/28 at 10am -Call his office to confirm and for further instructions Office Address: [address] [place] [address] Office Office Bracelet Maker Novelty: Allyssa Horton 2. Review your medication list with your nurse before leaving and if you need new prescriptions please let your nurse know. 3. I may have made changes to your home medications or given you new prescriptions, please let your primary doctor know as well. 4. Stay compliant with your medications and report any side effects to your PCP or pharmacist. 5. Return to the ER if you have any concerns and cannot reach your doctors or call your insurance company, they usually have a nurse that can help you. DON'T TAKE YOUR METFORMIN AND LASIX FOR THE NEXT 2 DAYS. YOU CAN START TAKING THEM AGAIN 11/22/18 AT THE NEW DOSES I HAVE PRESCRIBED Primary Care Provider Oscar Najera Time spent on discharge: > 30 minutes Pending Labs Laboratory Tests Test 11/18/18 17:35 11/19/18 05:07 Urine Color YELLOW (YELLOW) Urine Clarity CLEAR (CLEAR) Urine pH 7.0 (5.0-9.0) Urine Specific [place] 1.039 (1.003-1.030) Urine Ketones NEGATIVE mg/dL (NEGATIVE) Urine Nitrite NEGATIVE mg/dL (NEGATIVE) Urine Bilirubin NEGATIVE mg/dL (NEGATIVE) Urine Urobilinogen NEGATIVE mg/dL (NEGATIVE) Urine Leukocyte Esterase NEGATIVE Celio/ul Urine Hemoglobin NEGATIVE mg/dL (NEGATIVE) Urine Random Creatinine 29 mg/dL (20-275) Urine Random Sodium 74 mmol/L (30-90) Urine Microalbumin 0.5 mg/dL Urine 17 (<30) Microalbumin/Creatinine Ra chad Urine Glucose NEGATIVE mg/dL (NEGATIVE) Urine Total Protein 6.0 mg/dl (0.0-11.9) White Blood Count 8.8 10^3/ul (4.8-10.8) Red Blood Count 3.49 10^6/ul (4.20-5.40) Hemoglobin 11.0 g/dl (12.0-16.0) Hematocrit 33.0 % (37.0-47.0) Mean Corpuscular Volume 94.6 fl (82.0-101.0) Mean Corpuscular 31.5 pg (29.0-33.0) Hemoglobin Mean Corpuscular 33.3 g/dl (32.0-37.0) Hemoglobin Concent Red Cell Distribution 12.6 % (11.5-14.5) Width Platelet Count 225 10^3/UL (140-415) Mean Platelet Volume 9.8 fl (7.4-10.4) Immature Granulocytes % 0.300 % (0.001-0.429) Neutrophils % 60.4 % (39.0-77.0) Lymphocytes % 26.8 % (15.0-51.0) Monocytes % 9.1 % (0.0-11.0) Eosinophils % 2.6 % (0.0-7.0) Basophils % 0.8 % (0.0-2.0) Nucleated Red Blood Cells 0.0 /100WBC (0.0-0.0) % Immature Granulocytes # 0.030 10^3/ul (0.0-0.031) Neutrophils # 5.3 10^3/ul (1.6-7.5) Lymphocytes # 2.4 10^3/ul (0.8-2.9) Monocytes # 0.8 10^3/ul (0.3-0.9) Eosinophils # 0.2 10^3/ul (0.0-0.5) Basophils # 0.1 10^3/ul (0.0-0.1) Nucleated Red Blood Cells 0.0 10^3/ul (0.0-0.0) # Sodium Level 138 mmol/L (135-144) Potassium Level 4.2 mmol/L (3.5-5.1) Chloride Level 98 mmol/L (97-110) Carbon Dioxide Level 26 mmol/L (21-31) Anion Gap 14 (5-13) Blood Urea Nitrogen 21 mg/dl (7-20) Creatinine 0.97 mg/dl (0.44-1.00) Est Glomerular Filtrat mL/min (>60) Rate mL/min Glucose Level 136 mg/dl (70-220) Calcium Level 9.3 mg/dl (8.4-10.2) Phosphorus Level 3.7 mg/dl (2.5-4.9) Magnesium Level 2.1 mg/dl (1.7-2.5) CARMEN NASH Nov 19, 2018 15:50
--- NOTE | 2018-11-19 16:38 | DS ---
DATE OF ADMISSION: 11/19/2018 DATE OF DISCHARGE: 11/19/2018 PRESENTING COMPLAINT: Chest pain. FINAL DIAGNOSES: 1. Chest pain. The patient has ruled out for acute coronary syndrome. - Echo on this admission showed ejection fraction of 55%. - No ischemia by Lexiscan in 07/2018. - No chest pain at this time, status post CTA with diffuse coronary artery disease, but unclear infor mation pertaining to stent patency in the LAD due to artifact per cardiology. - Disposition: Cleared for discharge per cardiology for now. The patient can follow up with her car diologist, Dr. Barreto and she is scheduled for outpatient cardiac catheterization 06/27/2019 at 10:00 a.m. 2. Hypertension: Improved control on current regimen. 3. History of coronary artery disease status post coronary artery bypass graft surgery. 4. Status post percutaneous transluminal coronary angioplasty and stent placement to saphenous vein graft in 2011. 5. Chronic congestive heart failure without exacerbation at this time. 6. Prediabetes, on empiric metformin. 7. Dyslipidemia, on statin. 8. Mild chronic kidney disease. 9. Chronic normocytic anemia. 10. Incidental finding of 9 mm thyroid nodule with normal TSH and a free T4. CONSULTS ON THE CASE: Dr. Stephany Aabd for cardiology, as well as Dr. Miguel Lunsford for nephrology. INTERVENTIONS: The patient was monitored on telemetry floor and ruled out with 3 negative cardiac en zymes and underwent a cardiac CT, for which the findings are summarized above but for details and fin dings, please review the patient's chart. SHORT HOSPITALIZATION COURSE: Full details are available in chart for review. In summary, this ximena ent was sent by ambulance from her adult [facility] center where she had complained of recurrent left-si ded chest pain after which she was admitted for further workup. There was some concern that she migh t have had an abnormal Lexiscan as outpatient even though she had a normal one while in the patient a few months ago and the outpatient cardiology suggested undergoing a CT cardiac angiogram. This was done in house and the in-house cardiology reviewed it and determined that there was no need for furth er intervention at this time even though the patient might benefit from repeat angiogram at some poin t. This was scheduled for 06/27/2019. The patient at this time was cleared to be discharged on curr ent regimen but to follow up at that time for outpatient coronary angiogram. This was communicated t o patient and her family. The patient is cleared and stable for discharge at this time. DISCHARGE MEDICATIONS: 1. Metoprolol 25 p.o. b.i.d. 2. Amlodipine 5 daily. 3. Aspirin 81 mg daily. 4. Dexilant 60 p.o. daily. 5. Isordil 20 p.o. b.i.d. 6. Metformin 1 g b.i.d. 7. Ranexa 1 g b.i.d. 8. Tramadol 50 mg p.o. q. p.r.n. pain. 9. Losartan was reduced to 50 mg p.o. daily because the patient was started on Lopressor 25 b.i.d. 10. Lasix has been put on hold. The patient is status post contrast study and this can be resumed 0 11/21/2018 at a dose of 20 mg. 11. Please also note that metformin was put on hold as well to be resumed on the same date at the do se of 500 b.i.d. Dictated By: CARMEN NASH MD BA/NTS Conf#: [id number] DID#: [id number] CC: STEPHANY ABAD MD;*End*
[2018-11-20] MEDS ORDERED: LOSARTAN 50 MG TAB PO SCH (09:00)
== END 2018-11-19 19:04 | disposition home or self-care (01) | DRG 313 ==
LOC: E/R 11:35 → 6WM 13:44 → CANRESERV 14:01 → 6WM 14:38 → OBSVTOIN 11-19 11:51
PROVIDERS: ADMIT Family Medicine; ATTEND Family Medicine
DX: R07.9 Chest pain, unspecified (principal); I13.0 Hypertensive heart and chronic kidney disease with heart failure and stage 1 through stage 4 chronic kidney disease, or unspecified chronic kidney disease; E11.42 Type 2 diabetes mellitus with diabetic polyneuropathy; I11.0 Hypertensive heart disease with heart failure; I50.9 Heart failure, unspecified; D64.9 Anemia, unspecified; E78.5 Hyperlipidemia, unspecified; I25.10 Atherosclerotic heart disease of native coronary artery without angina pectoris; E11.22 Type 2 diabetes mellitus with diabetic chronic kidney disease; N18.9 Chronic kidney disease, unspecified; Z79.84 Long term (current) use of oral hypoglycemic drugs; Z95.1 Presence of aortocoronary bypass graft; Z95.5 Presence of coronary angioplasty implant and graft
CPT/HCPCS: 36415; 71045; 75571; 75574; 80048; 80053; 81003; 82043; 82550; 82553; 82962; 83735; 83880; 84100; 84155; 84300; 84484; 85025; 87081; 93005; 93306; 97162; G0378; J1650; J2270; J3475; Q9967

== ENCOUNTER 2018-11-27 08:27 | Day surgery (SDC) | payer MEDICARE, OTHER ==
[2018-11-27] VITALS (10 sets, daily range): BP systolic 140–171; BP diastolic 48–89; PULSE 59–66; RESP 15–18; Ht 147.3 cm; Wt 74.5 kg
[~2018-11-27] VITALS: Ht 147.3 cm; Wt 74.5 kg
[~2018-11-27 08:27] MED LIST changes: +DEXL60CA2 PO; -FURO40TA4 PO; +ISOS10TA2 PO; -ISOS120T15 PO; +LAS20 PO; +LOSA100T15 PO; +METF500T PO; +METO-448 PO; -MTF1000T PO
[2018-11-27] MEDS ORDERED: SOD CHLORIDE 0.45% 1,000 ML IV ONE (09:00)
[2018-11-27] MEDS ORDERED: FAMOTIDINE 20 MG TAB PO ONE (09:00)
[2018-11-27] MEDS ORDERED: DIPHENHYDRAMINE 50 MG CAP PO ONE (09:00)
[2018-11-27] MEDS ORDERED: DIAZEPAM 5 MG TAB PO ONE (09:00)
[2018-11-27] MEDS ORDERED: FURO-110 PO (09:09)
[2018-11-27] MEDS ORDERED: ISOS30TA67 PO (09:10)
[2018-11-27] MEDS ORDERED: LOSA50TA14 PO (09:11)
[2018-11-27] MEDS ORDERED: METF500T24 PO (09:11)
[2018-11-27] MEDS ORDERED: ATOR10TA65 PO (09:12)
[2018-11-27] MEDS ORDERED: HEPARIN 1000 UNITS/ML 10 ML INJ ONE (09:44)
[2018-11-27] MEDS ORDERED: LIDOCAINE 1% (MDV) 20 ML INJ ONE (09:44)
[2018-11-27] MEDS ORDERED: MIDAZOLAM 1 MG/ML 2 ML INJ ONE (09:44)
[2018-11-27] MEDS ORDERED: IODIXANOL LOCM 100 ML BTL ONE (09:44)
[2018-11-27] MEDS ORDERED: FENTAnyl 50 MCG/ML VIAL ONE (09:45)
[2018-11-27] MEDS ORDERED: NITROGLYCERIN (IC) 100 MCG/ML INJ ONE (09:45)
[2018-11-27] MEDS ORDERED: VERAPAMIL 5 MG INJ ONE ×2 (09:45→10:08)
[2018-11-27] MEDS ORDERED: SOD CHLORIDE 0.9% 1,000 ML IV SCH (11:44)
--- NOTE | 2018-11-27 11:48 | SIPON ---
Date/Time of Note Date/Time of Note DATE: 11/27/18 TIME: 11:47 Operative Report Preoperative Diagnosis 1.Chest pain Postoperative Diagnosis obstructive cad Operation/Procedure Performed 1.[facility] 2.Femoral angiography Surgeon see signature line intellectual property legal assistant Mario Anesthesia: moderate sedation Estimated blood loss: minimal Transfusion Required none Specimen none Grafts/Implants none Complications none STEPHANY CRABTREE Nov 27, 2018 11:48
[2018-11-27] MEDS ORDERED: AL HYDROX/MG HYDROX/SIMETH 30 ML CUP PO PRN (12:00)
[2018-11-27] MEDS ORDERED: ONDANSETRON 4 MG INJ IV PRN (12:00)
[2018-11-27] MEDS ORDERED: HOLD all METFORMIN and METFORMIN CONTAINING medications for 48 hours post procedure. Chec XX SCH (12:00)
[2018-11-27] MEDS ORDERED: ACETAMINOPHEN 325 MG TAB PO PRN (12:00)
[2018-11-27] MEDS ORDERED: morphine 2 MG INJ IV PRN (12:00)
--- NOTE | 2018-11-27 17:14 | CARRPT ---
DATE OF PROCEDURE: 11/27/2018 REASON FOR ANGIOGRAM AND CATHETERIZATION: Chest pain. Positive stress test findings. TYPE OF ANESTHESIA: Conscious and local. BRIEF HISTORY AND HOSPITAL COURSE: Ms. Hurtado is an 82-year-old female with a history of coronary art sharee disease, status post coronary bypass graft surgery, receiving a single saphenous vein graft to he r LAD, status post prior STEAMBLASTER and stent placement, 2 saphenous vein grafts to LAD, who now re-presents with complaints of substernal chest pain. Given these findings, the patient referred for and presen ts today to undergo left heart catheterization to assess possibility of recurrent significant obstruc tive coronary artery disease leading to recurrence of chest pain and subsequent positive stress test findings. DESCRIPTION OF PROCEDURE: After informed consent was obtained, the patient was brought to the [facility], where her initially right groin was prepped in the usual rabia rile fashion. Then 2% lidocaine was infiltrated into the right groin in order to achieve adequate an esthesia. Using modified Seldinger technique, the right femoral artery was cannulated and we attempt ed to pass a wire but unsuccessfully, so no sheath was placed. It got caught in the distal aorta. W e tried a VersaCore, still did not prove successful. This was exchanged out and we then attempted a left radial access and we are able to get access, passed the wire and wire looped up, consistent with a recurrent loop. Subsequently, at this time, the needle was removed again. No sheath was placed, and access was gained in the left femoral artery, and we did have the micropuncture kit, took an edin ogram, and it showed that it was open pathway to the aorta. Subsequently, this was upsized to a 6-Fr ench sheath, and through this a 0.035 wire was passed into the ascending aorta and cath initiated wit h a JL4 catheter which was used to cannulate the left main coronary ostium. With contrast injection, multiple views of the left coronary arterial system were obtained. JL4 was removed over the guidewi re and a JR4 was used in attempt to cannulate the right coronary arterial ostium. This proved unsucc essful. It was used to cannulate the saphenous graft supplying the LAD and CASTLE to see if it had bee n grafted, which it was not. This was exchanged and we attempted to cannulate the right coronary art sharee with a Chris wire posterior, a Chris right, a NENA 0.75, all proved unsuccessful. At this t don we used a 6-Israeli pigtail. It was passed into the ascending aorta and aortic root angiography w as undertaken with 40 mL of contrast. Did not visualize the right coronary artery. It was repositio kelsey then again imaged, and this did visualize the right coronary artery which seemed to be posterior. So at this point, we went back with an Amplatz and we were able to reach this and then used a hocke y stick and were able to have a nonselective visualization of the right coronary artery which appeare d posterior and coming from the left cusp, and it appeared to be a nondominant vessel. Subsequently, at this time, a left femoral arterial angiogram was obtained, revealing sheath to be well placed in the right common femoral artery. Subsequently, a 6-Israeli Perclose device was used to seal of the ve ssel, completing the procedure. There were no noted complications. FINDINGS: Coronary angiography: Left main: 4 mm, no significant stenoses. Circumflex proximally is a 3.5 mm vessel with an ostial 30% stenosis. The remainder of the circ thereafter is free of significant foca l stenoses. There are 2 mid branching obtuse marginals, each approximately 2 mm vessels with no sign ificant focal stenoses. This shows circ dominance, LATVIAN crani, is coming in the ____, that is how I k new it was a dominant vessel, ____ might be a nondominant small vessel. Left-sided PDA and posterola teral branch are each approximately 1 mm with no significant focal stenoses. The right coronary richi ry visualized nonselectively is a small nondominant vessel with no significant focal stenoses. Addit ionally on coronary angiography, the patient had a proximal LAD is likely a 3.5 mm vessel that is dif fusely diseased and shortly after takeoff becomes 100% occluded, and there is a diagonal that bifurca fermín just at this midportion where it becomes 100% occluded. It has a good flow, but it appears to harris ve like a high grade 90% stenosis and it is a sub 1.5 mm vessel. Bypass graft angiography revealed the patient to have a widely patent saphenous vein graft to LAD, zurita pplying a decent distal size vessel with a somewhat difficult to visualize stent, but widely patent a nd a midbody maybe 30% stenosis. Femoral angiography: When attempting to assess the vasculature for disease and difficulty in getting in the right femoral artery, revealed the patient to have an extremely tortuous right common femoral artery extending into the external iliac artery and then questionable disease just at the common kimmie ac, external iliac bifurcation on the right, the left common femoral, external iliac, extending into the aorta is widely patent. TOTAL FLUOROSCOPY TIME: 22.4 minutes TOTAL CONTRAST: 240 mL IMPRESSION: 1. Single vessel obstructive coronary artery disease involving 100% occluded patient's left anterior descending with a widely patent saphenous vein graft to left anterior descending. 2. No significant stenosis in the patient's circumflex distribution. 3. Nondominant patent right coronary artery, anomalous, posterior, and from the left cusp. 4. High-normal left heart filling pressures at 15 to 16. 5. No significant aortic stenosis by gradient. RECOMMENDATIONS: In light of procedure findings, we would: 1. Maximize medical management. 2. Aggressive risk factor reduction. 3. The patient to be readmitted to the same day surgery center for post-catheterization observation and continued management of presenting symptoms with probable discharge later this afternoon. Dictated By: STEPHANY REYES/KATIE Conf#: [id number] DID#: [id number]
== END 2018-11-27 15:52 | disposition home or self-care (01) ==
LOC: SDS 08:27
PROVIDERS: ATTEND Internal Medicine
DX: I25.10 Atherosclerotic heart disease of native coronary artery without angina pectoris (principal)
CPT/HCPCS: 80053; 82962; 85025; 85610; 85730; 93459; C1760; C1769; C1887; C1894; J1644; J2250; J3010; Q9967

== ENCOUNTER 2018-12-06 23:46 | Emergency (ER) | payer MEDICARE, OTHER ==
[~2018-12-06] VITALS: Wt 74.9 kg
[~2018-12-06 23:46] MED LIST changes: +ATOR10TA65 PO; +FURO-110 PO; -ISOS10TA2 PO; +ISOS30TA67 PO; -LAS20 PO; -LOSA100T15 PO; +LOSA50TA14 PO; -METF500T PO; +METF500T24 PO
--- NOTE | 2018-12-07 01:32 | ERD ---
ER Documentation Chief Complaint Chief Complaint CP RADIATING TO LEFT NECK X'S 2 HOURS HPI 82-year-old woman brought in by son for chest pain, palpitations, pain radiating up to the left lateral neck. She has this chest pain quite frequently and son states she has this pain about once per week. She very recently underwent coronary angiogram revealing widely patent vessels patent graft. She has had no recent cough, no fevers or chills, no vomiting or diarrhea, no complaints of shortness of breath. ROS All systems reviewed and are negative except as per history of present illness. Medications Home Meds Active Scripts Diclofenac Sodium* (Voltaren* Gel) 1% -100 Gm Gel, 2 GM TOP TID PRN for PAIN, #1 TUB Prov:LAKIA SANFORD MD 12/07/18 Metoprolol Tartrate* (Lopressor*) 25 Mg Tab, 25 MG PO BID, #60 TAB 1 Refill Prov:CARMEN NASH 11/19/18 Reported Medications Atorvastatin Calcium (Atorvastatin Calcium) 10 Mg Tablet, 10 MG PO QHS, #30 TAB 11/27/18 Metformin Hcl* (Metformin Hcl*) 500 Mg Tablet, 500 MG PO WITH BREAKFAST DINNE, #60 TAB 11/27/18 Losartan Potassium* (Losartan Potassium*) 50 Mg Tablet, 50 MG PO DAILY, TAB 11/27/18 Isosorbide Mononitrate* (Isosorbide Mononitrate*) 30 Mg Tab.er.24h, 30 MG PO DAILY, TAB 11/27/18 Furosemide* (Lasix*) 20 Mg Tablet, 20 MG PO BID, TAB 11/27/18 Dexlansoprazole (Dexilant) 60 Mg Matt., 60 MG PO DAILY, #30 CAP 11/17/18 Tramadol Hcl* (Ultram*) 50 Mg Tablet, 50 MG PO Q6H PRN for PAIN, TAB 08/08/18 Amlodipine Besylate* (Norvasc*) 5 Mg Tablet, 5 MG PO DAILY, TAB 08/08/18 Aspirin* (Aspirin* EC) 81 Mg Tablet.dr, 81 MG PO DAILY, TAB 08/08/18 Ranolazine* (Ranexa*) 1,000 Mg Tab.sr.12h, 1000 MG PO BID 07/30/18 Allergies Allergies: Coded Allergies: RITESH Inhibitors (Verified Allergy, Mild, SOB, 11/27/18) PMhx/Soc Coronary artery disease, status post coronary bypass graft surgery, receiving a single saphenous vein graft to her LAD, status post prior BARYTES GRINDER and stent placement, 2 saphenous vein grafts to LAD with recent angiography revealing diffusely patent vessels. Hypertension, CHF, prediabetes, kidney disease History of Surgery: Yes (CABG 2011, OPEN HEART 2000) Anesthesia Reaction: No Hx Neurological Disorder: Yes Hx Respiratory Disorders: No Hx Cardiac Disorders: Yes (CAD, CHF, HTN, HLP) Hx Psychiatric Problems: No Hx Miscellaneous Medical Probl: No (DIABETES) Hx Alcohol Use: No Hx Substance Use: No Hx Tobacco Use: No Smoking Status: Never smoker Physical Exam Vitals Vital Signs Date Temp Pulse Resp B/P (MAP) Pulse Ox O2 O2 Flow FiO2 Time Delivery Rate 12/07/18 76 16 158/59 99 Room Air 05:15 (92) 12/07/18 74 16 165/68 99 Room Air 03:15 (100) 12/07/18 74 18 156/74 100 Room Air 01:05 (101) 12/06/18 98.1 69 18 214/81 100 23:49 (125) Physical Exam Const: Patient appears anxious, afebrile Head: Atraumatic Eyes: Normal Conjunctiva ENT: Normal External Ears, Nose and Mouth. Neck: Full range of motion. No meningismus. Resp: Clear to auscultation bilaterally Cardio: Regular rate and rhythm, no murmurs Abd: Soft, non tender, non distended. Normal bowel sounds Skin: No petechiae or rashes Back: No midline or flank tenderness Ext: No cyanosis, or edema Neur: Awake and alert x3, no focal deficits or facial asymmetry Psych: Anxious Result Diagram: 12/07/18 0154 12/07/18 0154 Results 24 hrs Laboratory Tests Test 12/07/18 01:54 White Blood Count 8.9 10^3/ul Red Blood Count 3.44 10^6/ul Hemoglobin 10.6 g/dl Hematocrit 32.4 % Mean Corpuscular Volume 94.2 fl Mean Corpuscular Hemoglobin 30.8 pg Mean Corpuscular Hemoglobin Concent 32.7 g/dl Red Cell Distribution Width 12.7 % Platelet Count 234 10^3/UL Mean Platelet Volume 10.3 fl Immature Granulocytes % 0.600 % Neutrophils % 60.4 % Lymphocytes % 26.2 % Monocytes % 9.6 % Eosinophils % 2.8 % Basophils % 0.4 % Nucleated Red Blood Cells % 0.0 /100WBC Immature Granulocytes # 0.050 10^3/ul Neutrophils # 5.4 10^3/ul Lymphocytes # 2.3 10^3/ul Monocytes # 0.9 10^3/ul Eosinophils # 0.3 10^3/ul Basophils # 0.0 10^3/ul Nucleated Red Blood Cells # 0.0 10^3/ul Sodium Level 141 mmol/L Potassium Level 4.4 mmol/L Chloride Level 98 mmol/L Carbon Dioxide Level 28 mmol/L Anion Gap 15 Blood Urea Nitrogen 30 mg/dl Creatinine 1.12 mg/dl Est Glomerular Filtrat Rate mL/min mL/min Glucose Level 114 mg/dl Calcium Level 10.0 mg/dl Total Bilirubin 0.4 mg/dl Direct Bilirubin 0.00 mg/dl Indirect Bilirubin 0.4 mg/dl Aspartate Amino Transf (AST/SGOT) 21 IU/L Alanine Aminotransferase (ALT/SGPT) 27 IU/L Alkaline Phosphatase 44 IU/L Troponin I < 0.012 ng/ml Total Protein 7.7 g/dl Albumin 4.3 g/dl Globulin 3.40 g/dl Albumin/Globulin Ratio 1.26 Lipase 70 U/L Current Medications Medications Dose Sig/Alethea Start Time Status Last (Trade) Ordered Route PRN Stop Time Admin Dose Reason Admin Sodium 500 ml @ Q1H STAT 12/07/18 DC 12/07/18 Chloride 500 mls/hr IV 01:36 01:43 12/07/18 03:00 Ketorolac 15 mg ONCE STAT 12/07/18 DC 12/07/18 Tromethamine IV 01:36 01:44 (Toradol) 12/07/18 01:37 Procedures/MDM IV line was established patient was placed on 3d animator rhythm strip revealed a sinus rhythm at about 80 bpm with upright P and T waves. Patient was afebrile Chest X-ray 1V Interpreted by me: Soft Tissue: No acute abnormalities Bones: No acute abnormalities Mediastinum/Cardiac Silhouette/Lungs: No acute abnormalities EKG performed, read by me: Normal sinus rhythm at 70 bpm, normal axis, first- degree AV block, right ventricular conduction delay QRS duration 100 ms, no concerning ST elevations or depressions noted I administered 500 cc normal saline IV and Toradol 15 mg IV x1. CBC normal, electrolytes are unremarkable and consistent with her history of chronic kidney injury, liver function tests normal, troponin negative I spoke to her primary grocery manager Dr. Abad who knows the patient very well and recommended outpatient management, no indication for admission, further treatment, or imaging Differential diagnoses considered, included but not limited to acute coronary syndrome, pulmonary embolism, aortic dissection, abdominal aortic aneurysm, sepsis, stroke, meningitis, encephalitis, pneumonia, appendicitis, cholecysti tis, bowel obstruction, pyelonephritis, nephrolithiasis, cystitis, as well as metabolic, hematologic, and electrolyte abnormalities. As well as abscess, cellulitis, fractures, and dislocations. Patient feels much better at this time, and vital signs are normal, symptoms have improved. I did give strict instructions to return to the ED if symptoms continue or worsen, patient will otherwise follow-up with primary care physician. Patient understood instructions and agreed to plan. Disclaimer: Inadvertent spelling and grammatical errors are likely due to EHR/dictation software use and do not reflect on the overall quality of patient care. Also, please note that the electronic time recorded on this note does not necessarily reflect the actual time of the patient encounter. Departure Diagnosis: Primary Impression: Chest pain Chest pain type: unspecified Qualified Codes: R07.9 - Chest pain, unspecified Additional Impression: Anxiety Condition: LAKIA Wolf MD Dec 07, 2018 01:32
[2018-12-07] MEDS ORDERED: SOD CHLORIDE 0.9% 500 ML IV STA (01:36)
[2018-12-07] MEDS ORDERED: KETOROLAC 15 MG INJ IV STA (01:36)
[2018-12-07] MEDS ORDERED: DICL100G37 TOP (05:29)
[2018-12-07 06:27] VITALS: BP 148/79; PULSE 78; RESP 16
== END 2018-12-07 06:28 | disposition home or self-care (01) ==
LOC: E/R 23:46
DX: F41.9 Anxiety disorder, unspecified (principal); I25.10 Atherosclerotic heart disease of native coronary artery without angina pectoris; I50.9 Heart failure, unspecified; I10 Essential (primary) hypertension; E11.9 Type 2 diabetes mellitus without complications; Z79.82 Long term (current) use of aspirin; Z79.84 Long term (current) use of oral hypoglycemic drugs
CPT/HCPCS: 36415; 71045; 80053; 83690; 84484; 85025; 93005; 96374; 99284; J1885; J7040

== ENCOUNTER 2018-12-22 11:45 | Emergency (ER) | payer MEDICARE, OTHER ==
[~2018-12-22] VITALS: Ht 160 cm; Wt 70.0 kg
[~2018-12-22 11:45] MED LIST changes: +DICL100G37 TOP
[2018-12-22 11:55] VITALS: Ht 160 cm; Wt 70.0 kg
[2018-12-22] MEDS ORDERED: ASPIRIN 81 MG TAB PO ONE (12:30)
[2018-12-22] MEDS ORDERED: NITROGLYCERIN 2% 1 GM OINT PKT TD ONE (12:30)
--- NOTE | 2018-12-22 12:44 | ERD ---
ER Documentation Chief Complaint Chief Complaint chest pain started today took 3 nitro HPI The patient is a 83-year-old, presenting to the ER because of left-sided chest pain that began around 9 AM while she was at daycare, happened about an hour after eating. She then took 3 nitroglycerin with good response. She now complains of mild chest pain with pressure. She had similar symptoms previously, denies syncope, near syncope, neck pain, abdominal pain, vomiting, dysuria, diarrhea. She does not smoke or drink. According to the son she has intermittent chest pain after the cardiac catheterization on October 2018. She has presented to the ER multiple times for similar chest pain after the cardiac cath She recently had a cardiac cath on 11/27/[address] Abad; it was unremarkable Past medical history: Diabetes mellitus, hypertension, CAD, CKD Past surgical history: CABG, cardiac cath ROS All systems reviewed and are negative except as per history of present illness. Medications Home Meds Active Scripts Sulfamethoxazole/Trimethoprim* (Bactrim Ds* Tablet) 1 Each Tablet, 1 TAB PO BID, #14 TAB Prov:GELY STEELE MD 12/22/18 Reported Medications Furosemide* (Lasix*) 20 Mg Tablet, 20 MG PO DAILY, TAB 12/22/18 Alprazolam* (Xanax*) 0.5 Mg Tab, 0.5 MG PO DAILY PRN for ANXIETY, TAB 12/22/18 Metoprolol Tartrate* (Lopressor*) 25 Mg Tablet, 25 MG PO BID, #60 TAB 12/22/18 Atorvastatin Calcium (Atorvastatin Calcium) 10 Mg Tablet, 10 MG PO QHS, #30 TAB 11/27/18 Metformin Hcl* (Metformin Hcl*) 500 Mg Tablet, 500 MG PO WITH BREAKFAST DINNE, #60 TAB 11/27/18 Losartan Potassium* (Losartan Potassium*) 50 Mg Tablet, 50 MG PO DAILY, TAB 11/27/18 Isosorbide Mononitrate* (Isosorbide Mononitrate*) 30 Mg Tab.er.24h, 30 MG PO DAILY, TAB 11/27/18 Dexlansoprazole (Dexilant) 60 Mg Cap., 60 MG PO DAILY, #30 CAP 11/17/18 Aspirin* (Aspirin* EC) 81 Mg Tablet., 81 MG PO DAILY, TAB 08/08/18 Discontinued Reported Medications Furosemide* (Lasix*) 20 Mg Tablet, 20 MG PO BID, TAB 11/27/18 Tramadol Hcl* (Ultram*) 50 Mg Tablet, 50 MG PO Q6H PRN for PAIN, TAB 08/08/18 Amlodipine Besylate* (Norvasc*) 5 Mg Tablet, 5 MG PO DAILY, TAB 08/08/18 Ranolazine* (Ranexa*) 1,000 Mg Tab.sr.12h, 1000 MG PO BID 07/30/18 Discontinued Scripts Diclofenac Sodium* (Voltaren* Gel) 1% -100 Gm Gel, 2 GM TOP TID PRN for PAIN, #1 TUB Prov:LAKIA SANFORD MD 12/07/18 Metoprolol Tartrate* (Lopressor*) 25 Mg Tab, 25 MG PO BID, #60 TAB 1 Refill Prov:CARMEN NASH 11/19/18 Allergies Allergies: Coded Allergies: RITESH Inhibitors (Verified Allergy, Mild, SOB, 12/22/18) PMhx/Soc History of Surgery: Yes (CABG 2011, OPEN HEART 2000) Anesthesia Reaction: No Hx Neurological Disorder: Yes Hx Respiratory Disorders: No Hx Cardiac Disorders: Yes (CAD, CHF, HTN, HLP) Hx Psychiatric Problems: No Hx Miscellaneous Medical Probl: Yes (DIABETES) Hx Alcohol Use: No Hx Substance Use: No Hx Tobacco Use: No Smoking Status: Never smoker Physical Exam Vitals Vital Signs Date Temp Pulse Resp B/P (MAP) Pulse Ox O2 O2 Flow FiO2 Time Delivery Rate 12/22/18 98.4 72 16 166/85 100 Room Air 16:34 (112) 12/22/18 98.2 69 16 159/82 100 Room Air 13:07 (107) 12/22/18 98.1 70 18 177/72 99 11:55 (107) Physical Exam Const: No acute distress. Head: Atraumatic. Eyes: Normal Conjunctiva. ENT: Normal External Ears, Nose and Mouth. Neck: Full range of motion. No meningismus. Resp: Clear to auscultation bilaterally. Cardio: Regular rate and rhythm. Mild chest discomfort on palpation, no crepitus Abd: Soft, non distended, normal bowel sounds, non tender. Skin: No petechiae or rashes. Back: No midline or flank tenderness. Ext: No cyanosis, or edema. Neur: Awake and alert. No focal deficit Psych: Normal Mood and Affect. Result Diagram: 12/22/18 1205 12/22/18 1205 Results 24 hrs Laboratory Tests Test 12/22/18 12:05 12/22/18 12:31 White Blood Count 7.6 10^3/ul Red Blood Count 3.73 10^6/ul Hemoglobin 11.6 g/dl Hematocrit 34.7 % Mean Corpuscular Volume 93.0 fl Mean Corpuscular Hemoglobin 31.1 pg Mean Corpuscular Hemoglobin Concent 33.4 g/dl Red Cell Distribution Width 12.8 % Platelet Count 218 10^3/UL Mean Platelet Volume 9.7 fl Immature Granulocytes % 0.400 % Neutrophils % 69.9 % Lymphocytes % 19.6 % Monocytes % 8.4 % Eosinophils % 1.0 % Basophils % 0.7 % Nucleated Red Blood Cells % 0.0 /100WBC Immature Granulocytes # 0.030 10^3/ul Neutrophils # 5.3 10^3/ul Lymphocytes # 1.5 10^3/ul Monocytes # 0.6 10^3/ul Eosinophils # 0.1 10^3/ul Basophils # 0.1 10^3/ul Nucleated Red Blood Cells # 0.0 10^3/ul Sodium Level 140 mmol/L Potassium Level 4.4 mmol/L Chloride Level 100 mmol/L Carbon Dioxide Level 31 mmol/L Anion Gap 9 Blood Urea Nitrogen 25 mg/dl Creatinine 0.91 mg/dl Est Glomerular Filtrat Rate mL/min mL/min Glucose Level 122 mg/dl Calcium Level 10.1 mg/dl Troponin I < 0.012 ng/ml B-Type Natriuretic Peptide 2210 PG/ML Bedside Urine pH (LAB) 7.0 Bedside Urine Protein (LAB) Trace Bedside Urine Glucose (UA) Negative Bedside Urine Ketones (LAB) Negative Bedside Urine Blood Negative Bedside Urine Nitrite (LAB) Negative Bedside Urine Leukocyte Esterase (L 2+ Current Medications Medications Dose Sig/Alethea Start Time Status Last (Trade) Ordered Route PRN Stop Time Admin Dose Reason Admin Aspirin 324 mg ONCE ONCE 12/22/18 DC 12/22/18 (Aspirin) PO 12:30 12:37 12/22/18 12:31 1 inch ONCE ONCE 12/22/18 DC 12/22/18 Nitroglycerin TD 12:30 12:37 12/22/18 12:31 (Nitroglyceri n 2% Oint) 650 mg ONCE ONCE 12/22/18 DC 12/22/18 Acetaminophen PO 16:30 16:34 (Tylenol 12/22/18 16:31 Tab) 650 mg ONCE STAT 12/22/18 DC Acetaminophen PO 16:03 (Tylenol 12/22/18 16:04 Tab) Procedures/[place] [id number] Radiology Main Line: [phone] DIAGNOSTIC IMAGING REPORT Patient: LINDA PARK : 1935 Age: 83 Sex: F MR #: [id number] DOS: 12/22/18 1201 Ordering MD: GELY STEELE MD Location: E/R Room/Bed: PROCEDURE: XR Chest. CLINICAL INDICATION: Chest pain TECHNIQUE: Single frontal view of the chest was obtained COMPARISON: CHEST 12/07/2018; LEO KAMINSKI CHEST 01/22/2015 FINDINGS: The heart is enlarged. The thoracic aorta is calcified. The patient is status post sternotomy. There is mild elevation of the right diaphragm. The lungs are clear. There is no pleural effusion or pneumothorax. RPTAT: AA IMPRESSION: Moderate cardiomegaly. Calcified aorta consistent with atherosclerotic disease. .Claude Mcintosh MD, Date Time Electronically viewed and signed by .Claude Mcintosh MD, MD on 12/22/2018 13:37 .S/ CC: GELY STEELE MD [id number] EKG: At 12:10 PM read by emergency physician Rate/Rhythm: Normal Sinus Rhythm 71 beats/min QRS, ST, T-waves: No ST elevation, no T inversion, PVC Impression: Abnormal EKG EKG: At 12:43 PM read by emergency physician Rate/Rhythm: Normal Sinus Rhythm 69 beats/min QRS, ST, T-waves: No ST elevation, no T inversion, PVC Impression: Abnormal EKG Consultation: I discussed the patient with her supervisor sintering plant Dr. Abad who did a cardiac angiogram for her in October and knew her well. He recommended discharge the patient and maximize medical treatment MEDICAL MAKING DECISION: The patient is a 83-year-old female, presenting with intermittent chest pain even though she had a negative cardiac cath on October 2018, acute UTI, chronic CHF. She was initially treated with nitroglycerin 1 inch to anterior chest wall and a 5 mg p.o. aspirin for acute chest pain upon arrival. Elevated BNP is most likely due to chronic CHF, I do not suspect any acute CHF exacerbation The differential diagnoses considered include but are not limited to acute coronary syndrome, acute myocardial infarction, pericarditis, pulmonary embolism, aortic dissection, pneumonia, pleural effusion, pneumothorax, GERD, chest wall pain. Departure Diagnosis: Primary Impression: Chest pain Additional Impressions: UTI (urinary tract infection) Chronic CHF Anemia Condition: Good Comments She was discharged with Bactrim DS I discussed the findings with the patient. I advised the patient to follow-up with her supervisor sintering plant Dr Abad tomorrow and return if any concern. Disclaimer: Inadvertent spelling and grammatical errors are likely due to E HR/dictation software use and do not reflect on the overall quality of patient care. Also, please note that the electronic time recorded on this note does not necessarily reflect the actual time of the patient encounter. GELY STEELE MD Dec 22, 2018 12:43
[2018-12-22] MEDS ORDERED: ALPR0.5T PO (13:22)
[2018-12-22] MEDS ORDERED: METO25TA4 PO (13:22)
[2018-12-22] MEDS ORDERED: FURO-110 PO (13:23)
[2018-12-22] MEDS ORDERED: ACETAMINOPHEN 325 MG TAB PO STA (16:03)
[2018-12-22] MEDS ORDERED: SULF1TAB31 PO (16:06)
[2018-12-22] MEDS ORDERED: ACETAMINOPHEN 325 MG TAB PO ONE (16:30)
[2018-12-22 16:34] VITALS: BP 166/85; PULSE 72; RESP 16
== END 2018-12-22 16:51 | disposition home or self-care (01) ==
LOC: E/R 11:45
DX: I50.9 Heart failure, unspecified (principal); N39.0 Urinary tract infection, site not specified; D64.9 Anemia, unspecified; I25.10 Atherosclerotic heart disease of native coronary artery without angina pectoris; E11.22 Type 2 diabetes mellitus with diabetic chronic kidney disease; N18.9 Chronic kidney disease, unspecified; I12.9 Hypertensive chronic kidney disease with stage 1 through stage 4 chronic kidney disease, or unspecified chronic kidney disease; Z95.1 Presence of aortocoronary bypass graft; Z79.84 Long term (current) use of oral hypoglycemic drugs; Z79.82 Long term (current) use of aspirin
CPT/HCPCS: 36415; 71045; 80048; 81003; 83880; 84484; 85025; 93005